=== PATIENT | female | born 1935 | race Caucasian/White ===

== ENCOUNTER 2017-02-28 02:03 | Inpatient (IN) | payer MEDICARE, BC ==
[2017-02-28] VITALS (27 sets, daily range): BP systolic 126–202; BP diastolic 60–94
[~2017-02-28] VITALS: Ht 152.4 cm; Wt 64.0 kg
[2017-02-28] MEDS ORDERED: HEPARIN for IV BOLUS 10,000 UNIT/10 ML VIAL. ONE ×2 (02:10→04:00)
[2017-02-28] MEDS ORDERED: NITROGLYCERIN SUBLINGUAL 0.4 MG BOTTLE OF 25. SL ONE (02:10)
[2017-02-28] MEDS ORDERED: MORPHINE SULFATE 2 MG/ML DISP.SYRIN. IV PRN ×2 (02:15→02:45)
[2017-02-28] MEDS ORDERED: NITROGLYCERIN SUBLINGUAL 0.4 MG BOTTLE OF 25. SL PRN ×2 (02:15→04:15)
[2017-02-28] MEDS ORDERED: HEPARIN for IV BOLUS 10,000 UNIT/10 ML VIAL. IV ONE ×2 (02:30→03:45)
[2017-02-28] MEDS ORDERED: ASPIRIN CHEWABLE 81 MG TABLET. PO ONE ×2 (02:30→04:00)
[2017-02-28 02:33] LABS: BASO % 1 % (0-3); EOS % 2 % (0-3); HEMATOCRIT 36.6 % (36.0-47.0); HEMOGLOBIN 12.1 g/dL (12.0-15.5); LYMPH # 2.3 x10^3/uL (1.0-4.8); LYMPH % 35 % (24-48); MEAN CORPUSCULAR HEMOGLOBIN 29 pg (25-35); MEAN CORPUSCULAR HGB CONC 33 g/dL (31-37); MEAN CORPUSCULAR VOLUME 88 fL (79-100); MONO % 11 % (0-9); NEUT % 52 % (31-73); PLATELET COUNT 170 x10^3/uL (140-400); RED BLOOD COUNT 4.18 x10^6/uL (3.50-5.40); RED CELL DISTRIBUTION WIDTH 14.6 % (11.5-14.5); WHITE BLOOD COUNT 6.5 x10^3/uL (4.0-11.0)
--- NOTE | 2017-02-28 02:34 | PHYS DOC ---
Past Medical History Past Medical History: Dementia, Diabetes-Type II, High Cholesterol, Hypertension Additional Past Medical Histor: LOW CALCIUM Past Surgical History: No Surgical History Alcohol Use: None Drug Use: None Adult General Chief Complaint Chief Complaint: CHEST PAIN HPI HPI 81-year-old female presenting to the emergency department today with chest pain and generalized fatigue and "hurting all over". She describes as starting approximately 5:00 this evening. She describes the pain as a pressure is nonradiating is moderate. She has a history of diabetes high blood pressure and GERD. shelter staff contacted paramedics who brought her in [facility]. EMS arrived and in route the patient pulse went into the low 30s and the patient received 0.5 mg of atropine. The patient was also given 325 mg of aspirin prior to arrival. Currently her pain is moderate or proximally 5 out of 10. Review of systems is negative for abdominal pain. Positive for nausea. Negative for diaphoresis. Negative for fevers or chills. All other review of systems is negative unless otherwise noted in history of present illness. Review of Systems Review of Systems SEE ABOVE. Current Medications Current Medications Current Medications Medications (Trade) Dose Ordered Sig/Leo Start Time Stop Time Status Last Admin Dose Admin Aspirin (Children'S Aspirin) 81 mg 1X ONCE 02/28/17 02:30 02/28/17 02:31 DC Fentanyl Citrate (Fentanyl 2ml Vial) 100 mcg STK-MED ONCE 02/28/17 02:44 02/28/17 02:45 DC Heparin Sodium (Porcine) 4,000 unit 1X ONCE 02/28/17 02:30 02/28/17 02:31 DC 02/28/17 02:13 4,000 UNIT Heparin Sodium/ Sodium Chloride 1,000 ml @ As Directed STK-MED ONCE 02/28/17 02:43 02/28/17 02:44 DC Iohexol 100 ml 100 ml STK-MED ONCE 02/28/17 02:43 02/28/17 02:44 DC Lidocaine HCl 20 ml STK-MED ONCE 02/28/17 02:43 02/28/17 02:44 DC Midazolam HCl (Versed) 2 mg STK-MED ONCE 02/28/17 02:44 02/28/17 02:45 DC Morphine Sulfate 2 mg PRN Q2HR PRN 02/28/17 02:45 03/01/17 02:44 Nitroglycerin (Nitrostat) 0.4 mg PRN Q5MIN PRN 02/28/17 02:15 02/28/17 02:11 0.4 MG Ondansetron HCl (Zofran) 4 mg PRN Q6HRS PRN 02/28/17 02:45 03/01/17 02:44 Allergies Allergies Allergies Coded Allergies Type Severity Reaction Last Updated Verified No Known Drug Allergies 02/28/17 No Physical Exam Physical Exam Constitutional: Well developed, well nourished, patient appears to be in a moderate amount of pain. She is awake and opens her eyes spontaneously. HENT: Normocephalic, atraumatic, bilateral external ears normal, oropharynx moist, no oral exudates, nose normal. [] Eyes: PERRLA, EOMI, conjunctiva normal, no discharge. [] Neck: Normal range of motion, no tenderness, supple, no stridor. Cardiovascular:Heart rate regular rhythm, no murmur [] Lungs & Thorax: Bilateral breath sounds clear to auscultation Abdomen: Bowel sounds normal, soft, no tenderness, no masses, no pulsatile masses. [] Skin: Warm, dry, no erythema, no rash. Back: No tenderness, no CVA tenderness. [] Extremities: No tenderness, no cyanosis, no clubbing, ROM intact, no edema. Neurologic: Alert and oriented X 3, normal motor function, normal sensory function, no focal deficits noted. Psychologic: Affect normal, judgement normal, mood normal. Current Patient Data Vital Signs Vital Signs Date Time Temp Pulse Resp B/P Pulse Ox O2 Delivery O2 Flow Rate FiO2 02/28/17 02:48 68 18 181/93 93 Nasal Cannula 2 02/28/17 02:08 97.5 97.5 Lab Values Laboratory Tests Test 02/28/17 02:20 02/28/17 02:23 White Blood Count 6.5x10^3/uL (4.0-11.0) Red Blood Count 4.18x10^6/uL (3.50-5.40) Hemoglobin 12.1g/dL (12.0-15.5) Hematocrit 36.6% (36.0-47.0) Mean Corpuscular Volume 88fL (79-100) Mean Corpuscular Hemoglobin 29pg (25-35) Mean Corpuscular Hemoglobin Concent 33g/dL (31-37) Red Cell Distribution Width 14.6% (11.5-14.5) H Platelet Count 170x10^3/uL (140-400) Neutrophils (%) (Auto) 52% (31-73) Lymphocytes (%) (Auto) 35% (24-48) Monocytes (%) (Auto) 11% (0-9) H Eosinophils (%) (Auto) 2% (0-3) Basophils (%) (Auto) 1% (0-3) Neutrophils # (Auto) 3.3x10^3uL (1.8-7.7) Lymphocytes # (Auto) 2.3x10^3/uL (1.0-4.8) Monocytes # (Auto) 0.7x10^3/uL (0.0-1.1) Eosinophils # (Auto) 0.1x10^3/uL (0.0-0.7) Basophils # (Auto) 0.0x10^3/uL (0.0-0.2) Sodium Level 140mmol/L (136-145) Potassium Level 3.4mmol/L (3.5-5.1) L Chloride Level 103mmol/L (98-107) Carbon Dioxide Level 26mmol/L (21-32) Anion Gap 11 (6-14) Blood Urea Nitrogen 20mg/dL (7-20) Creatinine 1.3mg/dL (0.6-1.0) H Estimated GFR (Cockcroft-Gault) 39.4 Glucose Level 300mg/dL (70-99) H Calcium Level 9.6mg/dL (8.5-10.1) Total Bilirubin 0.2mg/dL (0.2-1.0) Direct Bilirubin 0.1mg/dL (0.0-0.2) Aspartate Amino Transferase (AST) 19U/L (15-37) Alanine Aminotransferase (ALT) 26U/L (14-59) Alkaline Phosphatase 59U/L (46-116) Troponin I Quantitative < 0.017ng/mL (0.000-0.055) Total Protein 6.9g/dL (6.4-8.2) Albumin 3.6g/dL (3.4-5.0) Lipase 368U/L (73-393) POC Troponin I 0.00ng/ml (<0.08) Laboratory Tests 02/28/17 02:20 Laboratory Tests 02/28/17 02:20 EKG EKG [] EKG without previous for comparison shows sinus rhythm with a regular rate. [place] is leftward. Intervals show prolonged QRS. ST segments show ST elevation in the inferior leads with ST depression in anterior lateral leads. Code STEMI called at 02:08 AM. Radiology/Procedures Radiology/Procedures Chest x-ray reviewed by myself shows no obvious infiltrate or pneumothorax. [] Course & Med Decision Making Course & Med Decision Making Pertinent Labs and Imaging studies reviewed. (See chart for details) [] 81-year-old female presenting to the emergency department with chest pain. Patient was hypertensive in the emergency department. Nitroglycerin was given for her pain. EKG shows inferior STEMI. Code STEMI called at [phone]. I discussed the case with Dr. Talamantes. The patient was given aspirin prior to arrival. She was loaded with heparin. She then went to the cardiac catheterization lab for further evaluation treatment and care. I secured the patient that in our ICU for after cardiac catheterization and admitted her to our hospitalist team for further evaluation workup and care. Dragon Disclaimer Dragon Disclaimer This electronic medical record was generated, in whole or in part, using a voice recognition dictation system. Departure Departure Impression: Primary Impression: STEMI (ST elevation myocardial infarction) Additional Impression: Chest pain Disposition: 01 HOME, SELF-CARE Admitting Physician: Other (Dr. Thomason) Condition: STABLE Referrals: UNKNOWN PCP NAME (PCP) Problem Qualifiers Primary Impression: STEMI (ST elevation myocardial infarction) CARLA MAYERS MD Feb 28, 2017 02:33
[2017-02-28] MEDS ORDERED: IOHEXOL 350 MG/ML 100ML VIAL. ONE ×2 (02:43→03:15)
[2017-02-28] MEDS ORDERED: LIDOCAINE 2% 20 ML VIAL. ONE (02:43)
[2017-02-28] MEDS ORDERED: MIDAZOLAM HCL/PF 2 MG/2 ML VIAL. ONE (02:44)
[2017-02-28] MEDS ORDERED: FENTANYL PF 100 MCG/2 ML VIAL. ONE (02:44)
[2017-02-28] MEDS ORDERED: ONDANSETRON PF 4 MG/2 ML VIAL. IV PRN ×2 (02:45)
[2017-02-28 02:47] LABS: CALCIUM 9.6 mg/dL (8.5-10.1); CREATININE 1.3 mg/dL (0.6-1.0); GFR 39.4; POTASSIUM 3.4 mmol/L (3.5-5.1)
[2017-02-28 02:53] LABS: ALBUMIN 3.6 g/dL (3.4-5.0); DIRECT BILIRUBIN 0.1 mg/dL (0.0-0.2); TOTAL BILIRUBIN 0.2 mg/dL (0.2-1.0); TOTAL PROTEIN 6.9 g/dL (6.4-8.2)
[2017-02-28] MEDS ORDERED: TIROFIBAN 12.5MG -0.9% NS 250 ML IV PRN ×2 (03:29→04:15)
[2017-02-28] MEDS ORDERED: TIROFIBAN 5MG -0.9% NS 100 ML IV ONE (03:45)
[2017-02-28] MEDS ORDERED: LIDOCAINE 2% 20 ML VIAL. IJ ONE (03:45)
[2017-02-28] MEDS ORDERED: IOHEXOL 350 MG/ML 100ML VIAL. IART ONE (03:45)
[2017-02-28] MEDS ORDERED: FENTANYL PF 100 MCG/2 ML VIAL. IV ONE (03:45)
[2017-02-28] MEDS ORDERED: MIDAZOLAM HCL/PF 2 MG/2 ML VIAL. IV ONE (03:45)
[2017-02-28] MEDS ORDERED: TICAGRELOR 90 MG TABLET. ONE (03:53)
[2017-02-28] MEDS ORDERED: TIROFIBAN-0.9% SODIUM CHLORIDE 12.5 MG/250 ML BAG. IV ONE (04:00)
[2017-02-28] MEDS ORDERED: TICAGRELOR 90 MG TABLET. PO ONE (04:00)
--- NOTE | 2017-02-28 04:07 | PDOC2 ---
CONSULT Date of Consult Date of Consult DATE: 02/28/17 TIME: 04:02 Reason for Consult Reason for Consult: Chest pain Referring Physician Referring Physician: Dr. Thomason Identification/Chief Complaint Chief Complaint Chest pain Source Source: Patient History of Present Illness Reason for Visit: The patient is an 81-year-old female who developed chest pressure approximately 3 hours ago. Paramedics were called and while in transport to the emergency room the patient had an episode of bradycardia treated with atropine. Upon arrival in the emergency room the patient had an EKG that was consistent with a inferior wall ST elevated myocardial infarction. She was treated with heparin and aspirin and as STEMI protocol was activated. Her pain improved somewhat but didn't continue. She has no history of coronary artery disease but does have a history of diabetes, hypertension and hyperlipidemia. Past Medical History Cardiovascular: HTN, Hyperlipidemia CENTRAL NERVOUS SYSTEM: Dementia Endocrine: Diabetes Past Surgical History Past Surgical History: No pertinent history Family History Family History: Heart Disease Social History No Current Problem List Problem List Problems Medical Problems: (1) Chest pain Status: Acute (2) STEMI (ST elevation myocardial infarction) Status: Acute Current Medications Current Medications Current Medications Nitroglycerin (Nitrostat) 0.4 mg STK-MED ONCE SL ; Start 02/28/17 at 02:10; Stop 02/28/17 at 02:11; Status DC Heparin Sodium (Porcine) 10,000 unit STK-MED ONCE .ROUTE ; Start 02/28/17 at 02: 10; Stop 02/28/17 at 02:11; Status DC Aspirin (Children'S Aspirin) 81 mg 1X ONCE PO ; Start 02/28/17 at 02:30; Stop 02/28/17 at 02:31; Status DC Nitroglycerin (Nitrostat) 0.4 mg PRN Q5MIN PRN SL CHEST PAIN Last administered on 02/28/17 02:11; Start 02/28/17 at 02:15 Morphine Sulfate 2 mg PRN Q1HR PRN IV SEVERE PAIN; Start 02/28/17 at 02:15; Stop 02/28/17 at 06:00 Heparin Sodium (Porcine) 4,000 unit 1X ONCE IV Last administered on 02/28/17 02:13; Start 02/28/17 at 02:30; Stop 02/28/17 at 02:31; Status DC Ondansetron HCl (Zofran) 4 mg PRN Q8HRS PRN IV NAUSEA/VOMITING; Start 02/28/17 at 02:45; Stop 02/28/17 at 02:45; Status DC Morphine Sulfate 2 mg PRN Q2HR PRN IV SEVERE PAIN; Start 02/28/17 at 02:45; Stop 03/01/17 at 02:44 Ondansetron HCl (Zofran) 4 mg PRN Q6HRS PRN IV NAUSEA/VOMITING; Start 02/28/17 at 02:45; Stop 03/01/17 at 02:44 Iohexol 100 ml 100 ml STK-MED ONCE .ROUTE ; Start 02/28/17 at 02:43; Stop at 02:44; Status DC Heparin Sodium/ Sodium Chloride 1,000 ml @ As Directed STK-MED ONCE .ROUTE ; Start 02/28/17 at 02:43; Stop 02/28/17 at 02:44; Status DC Lidocaine HCl 20 ml STK-MED ONCE .ROUTE ; Start 02/28/17 at 02:43; Stop at 02:44; Status DC Midazolam HCl (Versed) 2 mg STK-MED ONCE .ROUTE ; Start 02/28/17 at 02:44; Stop 02/28/17 at 02:45; Status DC Fentanyl Citrate (Fentanyl 2ml Vial) 100 mcg STK-MED ONCE .ROUTE ; Start at 02:44; Stop 02/28/17 at 02:45; Status DC Iohexol 100 ml 100 ml STK-MED ONCE .ROUTE ; Start 02/28/17 at 03:15; Stop at 03:16; Status DC Heparin Sodium/ Sodium Chloride 500 ml @ As Directed STK-MED ONCE .ROUTE ; Start 02/28/17 at 03:35; Stop 02/28/17 at 03:36; Status DC Heparin Sodium/ Sodium Chloride 1,000 unit 1X ONCE IART ; Start 02/28/17 at 03: 45; Stop 02/28/17 at 03:46; Status DC Heparin Sodium/ Sodium Chloride 1,000 unit 1X ONCE IART ; Start 02/28/17 at 03: 45; Stop 02/28/17 at 03:46; Status DC Midazolam HCl (Versed) 1 mg 1X ONCE IV ; Start 02/28/17 at 03:45; Stop at 03:46; Status DC Fentanyl Citrate (Fentanyl 2ml Vial) 12.5 mcg 1X ONCE IV ; Start 02/28/17 at 03 :45; Stop 02/28/17 at 03:46; Status DC Iohexol (Omnipaque 350 Mg/ml) 100 ml 1X ONCE IART ; Start 02/28/17 at 03:45; Stop 02/28/17 at 03:46; Status DC Heparin Sodium (Porcine) 2,000 unit 1X ONCE IV ; Start 02/28/17 at 03:45; Stop 02/28/17 at 03:46; Status DC Lidocaine HCl 20 ml 20 ml 1X ONCE IJ ; Start 02/28/17 at 03:45; Stop 02/28/17 at 03:46; Status DC Tirofiban/Sodium Chloride 100 ml @ 0 mls/hr 1X ONCE IV ; Start 02/28/17 at 03: 45; Stop 02/28/17 at 03:46; Status DC Tirofiban/Sodium Chloride (Aggrastat 12.5 Mg/250 ml Premix) 250 ml @ 0 mls/hr CONT PRN IV PER PROTOCOL; Start 02/28/17 at 03:29; Stop 02/28/17 at 21:28 Ticagrelor (Brilinta) 180 mg 1X ONCE PO ; Start 02/28/17 at 04:00; Stop at 04:01 Aspirin (Children'S Aspirin) 81 mg 1X ONCE PO ; Start 02/28/17 at 04:00; Stop 02/28/17 at 04:01 Ticagrelor (Brilinta) 90 mg STK-MED ONCE .ROUTE ; Start 02/28/17 at 03:53; Stop 02/28/17 at 03:54; Status DC Allergies Allergies: Coded Allergies: No Known Drug Allergies (Unverified , 02/28/17) ROS Cardiovascular: yes Chest Pain Physical Exam General: mild distress HEENT: Atraumatic Lungs: Clear to auscultation Heart: Regular rate Abdomen: Normal bowel sounds Vitals VITALS Vital Signs Date Time Temp Pulse Resp B/P Pulse Ox O2 Delivery O2 Flow Rate FiO2 02/28/17 03:58 72 14 96 Nasal Cannula 2.0 02/28/17 02:48 181/93 02/28/17 02:08 97.5 97.5 Labs Labs Laboratory Tests Test 02/28/17 02:20 02/28/17 02:23 White Blood Count 6.5x10^3/uL (4.0-11.0) Red Blood Count 4.18x10^6/uL (3.50-5.40) Hemoglobin 12.1g/dL (12.0-15.5) Hematocrit 36.6% (36.0-47.0) Mean Corpuscular Volume 88fL (79-100) Mean Corpuscular Hemoglobin 29pg (25-35) Mean Corpuscular Hemoglobin Concent 33g/dL (31-37) Red Cell Distribution Width 14.6% (11.5-14.5) Platelet Count 170x10^3/uL (140-400) Neutrophils (%) (Auto) 52% (31-73) Lymphocytes (%) (Auto) 35% (24-48) Monocytes (%) (Auto) 11% (0-9) Eosinophils (%) (Auto) 2% (0-3) Basophils (%) (Auto) 1% (0-3) Neutrophils # (Auto) 3.3x10^3uL (1.8-7.7) Lymphocytes # (Auto) 2.3x10^3/uL (1.0-4.8) Monocytes # (Auto) 0.7x10^3/uL (0.0-1.1) Eosinophils # (Auto) 0.1x10^3/uL (0.0-0.7) Basophils # (Auto) 0.0x10^3/uL (0.0-0.2) Sodium Level 140mmol/L (136-145) Potassium Level 3.4mmol/L (3.5-5.1) Chloride Level 103mmol/L (98-107) Carbon Dioxide Level 26mmol/L (21-32) Anion Gap 11 (6-14) Blood Urea Nitrogen 20mg/dL (7-20) Creatinine 1.3mg/dL (0.6-1.0) Estimated GFR (Cockcroft-Gault) 39.4 Glucose Level 300mg/dL (70-99) Calcium Level 9.6mg/dL (8.5-10.1) Total Bilirubin 0.2mg/dL (0.2-1.0) Direct Bilirubin 0.1mg/dL (0.0-0.2) Aspartate Amino Transf (AST/SGOT) 19U/L (15-37) Alanine Aminotransferase (ALT/SGPT) 26U/L (14-59) Alkaline Phosphatase 59U/L (46-116) Troponin I Quantitative < 0.017ng/mL (0.000-0.055) EJ-Uum-D-Type Natriuretic Peptide 99pg/mL (0-449) Total Protein 6.9g/dL (6.4-8.2) Albumin 3.6g/dL (3.4-5.0) Lipase 368U/L (73-393) Bedside Troponin I 0.00ng/ml (<0.08) Laboratory Tests Test 02/28/17 02:20 02/28/17 02:23 White Blood Count 6.5x10^3/uL (4.0-11.0) Red Blood Count 4.18x10^6/uL (3.50-5.40) Hemoglobin 12.1g/dL (12.0-15.5) Hematocrit 36.6% (36.0-47.0) Mean Corpuscular Volume 88fL (79-100) Mean Corpuscular Hemoglobin 29pg (25-35) Mean Corpuscular Hemoglobin Concent 33g/dL (31-37) Red Cell Distribution Width 14.6% (11.5-14.5) Platelet Count 170x10^3/uL (140-400) Neutrophils (%) (Auto) 52% (31-73) Lymphocytes (%) (Auto) 35% (24-48) Monocytes (%) (Auto) 11% (0-9) Eosinophils (%) (Auto) 2% (0-3) Basophils (%) (Auto) 1% (0-3) Neutrophils # (Auto) 3.3x10^3uL (1.8-7.7) Lymphocytes # (Auto) 2.3x10^3/uL (1.0-4.8) Monocytes # (Auto) 0.7x10^3/uL (0.0-1.1) Eosinophils # (Auto) 0.1x10^3/uL (0.0-0.7) Basophils # (Auto) 0.0x10^3/uL (0.0-0.2) Sodium Level 140mmol/L (136-145) Potassium Level 3.4mmol/L (3.5-5.1) Chloride Level 103mmol/L (98-107) Carbon Dioxide Level 26mmol/L (21-32) Anion Gap 11 (6-14) Blood Urea Nitrogen 20mg/dL (7-20) Creatinine 1.3mg/dL (0.6-1.0) Estimated GFR (Cockcroft-Gault) 39.4 Glucose Level 300mg/dL (70-99) Calcium Level 9.6mg/dL (8.5-10.1) Total Bilirubin 0.2mg/dL (0.2-1.0) Direct Bilirubin 0.1mg/dL (0.0-0.2) Aspartate Amino Transf (AST/SGOT) 19U/L (15-37) Alanine Aminotransferase (ALT/SGPT) 26U/L (14-59) Alkaline Phosphatase 59U/L (46-116) Troponin I Quantitative < 0.017ng/mL (0.000-0.055) ZE-Hdu-Z-Type Natriuretic Peptide 99pg/mL (0-449) Total Protein 6.9g/dL (6.4-8.2) Albumin 3.6g/dL (3.4-5.0) Lipase 368U/L (73-393) Bedside Troponin I 0.00ng/ml (<0.08) Assessment/Plan Assessment/Plan 1. Acute inferior ST elevated myocardial infarction. Patient has been treated with aspirin and heparin. Pain has continued although improved. Agree with emergency catheterization. Risks and benefits were discussed and the patient has agreed to proceed. 2. Hypertension. Patient is mildly hypertensive.Continue present treatments and monitoring. We'll adjust medications as needed. 3. Hyperlipidemia. Will resume statins and check a cholesterol panel. 4. Diabetes mellitus. We'll monitor glucose and adjust as needed. Thank you for allowing us to participate the care of your patient. MARICARMEN MURDOCK MD Feb 28, 2017 04:07
[2017-02-28] MEDS: IV NORMAL SALINE 1000ML BAG 1,000 ML IV SCH ×2 (04:09→21:11)
--- NOTE | 2017-02-28 04:09 | PDOC4 ---
Operative Note Operative Note Brief catheterization note. LV 167/28, aortic root 167/68. Coronaries. Left main. No lesions. Left anterior descending. Proximal 15% lesion. Left circumflex. Mid 10% lesion. Right coronary artery. Ostial 20% lesion. Mid occlusion. Left ventriculogram. Overall ejection fraction of greater than 55% minimal inferior wall hypokinesis. Aortic root appears mild to moderately enlarged. Revascularization of the occluded right coronary artery. 3.0 x 23 mm bare-metal stent deployed. 0% residual. We'll continue post PCI and ST elevated myocardial infarction protocols. Discussed with the patient and her family. Full report to follow. MARICARMEN MURDOCK MD Feb 28, 2017 04:09
[2017-02-28] MEDS ORDERED: ACETAMINOPHEN 325 MG TABLET. PO PRN (04:15)
[2017-02-28] MEDS ORDERED: ATROPINE 0.5 MG/5 ML DISP.SYRIN. IV PRN (04:15)
[2017-02-28] MEDS ORDERED: AMIODARONE 150 MG in IV DEXTROSE 5% 100 ML IV PRN (04:15)
[2017-02-28] MEDS ORDERED: 0.9 % SODIUM CHLORIDE 10 ML DISP.SYRIN. IV PRN (04:15)
[2017-02-28] MEDS ORDERED: LIDOCAINE 2% 100 MG/5 ML DISP.SYRIN. IV PRN (04:15)
[2017-02-28] MEDS ORDERED: OXYCODONE/APAP 5/325 TABLET. PO PRN (04:15)
[2017-02-28] MEDS ORDERED: FENTANYL PF 100 MCG/2 ML VIAL. IV PRN (04:15)
[2017-02-28] MEDS ORDERED: AMLODIPINE BESYLATE 5 MG TABLET. PO ONE (05:00)
--- NOTE | 2017-02-28 06:36 | EKG ---
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
[2017-02-28] MEDS ORDERED: INSU100I13 SQ (06:40)
[2017-02-28] MEDS ORDERED: CALC0.25 PO (06:40)
[2017-02-28] MEDS ORDERED: POTA20TA4 PO (06:40)
[2017-02-28] MEDS ORDERED: GLIP5TAB10 PO (06:40)
[2017-02-28] MEDS ORDERED: LISI-334 PO (06:40)
[2017-02-28] MEDS ORDERED: TRAM50TA PO (06:40)
[2017-02-28] MEDS ORDERED: OMEP20CA9 PO (06:40)
[2017-02-28] MEDS ORDERED: FENO145T2 PO (06:40)
--- NOTE | 2017-02-28 07:29 | RAD ---
EXAM: Chest, single view. HISTORY: Chest pain. COMPARISON: None. FINDINGS: A frontal view of the chest is obtained. There is lateral lower lobe atelectasis. There is no consolidation, effusion or pneumothorax. The heart is normal in size for portable technique. There is prominence of the superior mediastinum likely due to aortic arch great vessels. IMPRESSION: No acute pulmonary finding.
[2017-02-28 08:44] LABS: BASO % 0 % (0-3); EOS % 0 % (0-3); HEMATOCRIT 36.9 % (36.0-47.0); LYMPH # 1.1 x10^3/uL (1.0-4.8); LYMPH % 14 % (24-48); MEAN CORPUSCULAR HEMOGLOBIN 28 pg (25-35); MEAN CORPUSCULAR HGB CONC 33 g/dL (31-37); MEAN CORPUSCULAR VOLUME 87 fL (79-100); MONO % 7 % (0-9); NEUT % 79 % (31-73); PLATELET COUNT 202 x10^3/uL (140-400); RED BLOOD COUNT 4.24 x10^6/uL (3.50-5.40); RED CELL DISTRIBUTION WIDTH 14.4 % (11.5-14.5); WHITE BLOOD COUNT 8.4 x10^3/uL (4.0-11.0)
[2017-02-28] MEDS ORDERED: METOPROLOL TART IMMED RELEASE 25 MG TABLET PO SCH ×2 (09:00→21:00)
[2017-02-28 09:03] LABS: CALCIUM 9.7 mg/dL (8.5-10.1); CREATININE 1.2 mg/dL (0.6-1.0); GFR 43.2; MAGNESIUM 1.5 mg/dL (1.8-2.4); POTASSIUM 3.9 mmol/L (3.5-5.1)
[2017-02-28 09:07] LABS: CHOLESTEROL/HDL RATIO 4.8
[2017-02-28] MEDS: CYCLOBENZAPRINE 10 MG TABLET. PO PRN ×2 (10:32→21:03)
[2017-02-28] MEDS: ASPIRIN ENTERIC COATED 81 MG TABLET.DR. PO SCH (10:33)
[2017-02-28] MEDS ORDERED: TRAMADOL 50 MG TABLET. PO PRN (10:45)
[2017-02-28] MEDS ORDERED: POTASSIUM CHLORIDE 20 MEQ TABLET.ER. PO ONE (10:45)
[2017-02-28] MEDS ORDERED: POTASSIUM CHLORIDE 20 MEQ TABLET.ER. PO SCH (11:00)
--- NOTE | 2017-02-28 11:18 | HP ---
ADMIT DATE: 02/28/2017 CHIEF COMPLAINT: Chest pain. HISTORY OF PRESENT ILLNESS: The patient is a pleasant elderly female, who presented to the ER with chest pain. While in the ER, she had ST elevations and was noted to have an acute myocardial infarction. She was taken emergently to the catheterization lab. She got a stent to the RCA. She is now in the ICU, where her troponin is trending up. PAST MEDICAL HISTORY: Hypertension, diabetes, mild dementia, hyperlipidemia, and hypocalcemia. ALLERGIES: None. FAMILY HISTORY: Coronary artery disease. SOCIAL HISTORY: She does not drink, smoke, or take drugs. MEDICATIONS: Reviewed. Please refer to the MRAD. REVIEW OF SYSTEMS: GENERAL: No history of weight change, weakness, or fevers. SKIN: No bruising, hair changes, or rashes. EYES: No blurred, double or loss of vision. NOSE AND THROAT: No history of nosebleeds, hoarseness, or sore throat. HEART: No history of palpitations, chest pain, or shortness of breath on exertion. LUNGS: Denies cough, hemoptysis, wheezing, or shortness of breath. GASTROINTESTINAL: Denies changes in appetite, nausea, vomiting, diarrhea, or constipation. GENITOURINARY: No history of frequency, urgency, hesitancy, or nocturia. NEUROLOGIC: Denies history of numbness, tingling, tremor, or weakness. PSYCHIATRIC: No history of panic, anxiety, or depression. ENDOCRINE: No history of heat or cold intolerance, polyuria, or polydipsia. EXTREMITIES: Denies muscle weakness, joint pain, pain on walking, or stiffness. PHYSICAL EXAMINATION: VITAL SIGNS: Temperature afebrile, pulse 82, respirations 18, and blood pressure 184/64. GENERAL: She is alert, cooperative, and ____. HEART: Normal S1, S2. LUNGS: Clear. ABDOMEN: Soft. EXTREMITIES: No edema. SKIN: No rashes. PSYCHIATRIC: She is stable. VASCULAR: Good capillary refill. ENDOCRINE: No thyromegaly. LYMPHATICS: No cervical nodes. HEMATOPOIETIC: No bruising. LABORATORY DATA: White count 6, hemoglobin 12, and platelets 170. Troponin was 0, it is now up to 65.36. Electrolytes: Sodium ____, potassium 3.9, chloride 101, bicarbonate 25, BUN 18, creatinine 1.3, and glucose 355. ASSESSMENT AND PLAN: Acute myocardial infarction with status post emergent intervention with a stent to the right coronary artery. The patient will be observed in the ICU. Continue serial enzymes and serial EKGs. Resume her home medications. Echocardiogram. Prognosis is guarded. LEONORA DUVALL DO DR: DELIA/gareth JOB#: [id number] / [id number]
--- NOTE | 2017-02-28 11:49 | CARD ---
APPROVED REPORT EXAM: Two-dimensional and M-mode echocardiogram with Doppler and color Doppler. Other Information Quality : AverageHR: 80bpm Rhythm : NSR INDICATION Status/Post DE 2D DIMENSIONS RVDd3.2 (2.9-3.5cm)Left Atrium(2D)3.2 (1.6-4.0cm) IVSd0.9 (0.7-1.1cm)Aortic Root(2D)2.8 (2.0-3.7cm) LVDd4.5 (3.9-5.9cm)LVOT Diameter2.0 (1.8-2.4cm) PWd0.9 (0.7-1.1cm)LVDs3.2 (2.5-4.0cm) FS (%) 28.9 %SV52.1 ml LVEF(%)55.7 (>50%) Aortic Valve AoV Peak Son.163.0cm/sAoV VTI24.1cm AO Peak GR.10.6mmHgLVOT VTI 23.66cm AO Mean GR.5mmHg Mitral Valve MV E Ejuqmjez03.6cm/sMV E Peak Gr.12mmHg MV DECEL [id number] A Lgwixete288.8cm/s MV E Mean Gr.3mmHgE/A Ratio0.4 MV A [id number] TDI Lateral E' P. V9.18cm/sMedial E' P. V9.28cm/s E/Lateral E'7.0E/Medial E'7.0 LEFT VENTRICLE The left ventricle is normal size. There is normal left ventricular wall thickness. Left ventricle sy stolic function is normal. The Ejection Fraction is 50-55%. The basal to mid inferior wall is moderat geo hypokinetic. Transmitral Doppler flow pattern is Grade I-abnormal relaxation pattern. There is no ventricular septal defect visualized. RIGHT VENTRICLE The right ventricle is normal size. The right ventricular systolic function is normal. ATRIA The left atrium size is normal. The right atrium size is normal. The interatrial septum is intact wit h no evidence for an atrial septal defect or patent foramen ovale as noted on 2-D or Doppler imaging. AORTIC VALVE The aortic valve is normal in structure and function. The aortic valve is trileaflet. Doppler and Col or Flow revealed no significant aortic regurgitation. There is no significant aortic valvular stenosi s. MITRAL VALVE Mitral annular calcification is moderate. The mitral valve leaflets are calcified. There is no eviden ce of mitral valve prolapse. There is no mitral valve stenosis. Doppler and Color Flow revealed trace mitral regurgitation. TRICUSPID VALVE The tricuspid valve is normal in structure and function. Doppler and Color Flow revealed no tricuspid valve regurgitation noted. Unable to estimate PA pressure. There is no tricuspid valve stenosis. PULMONIC VALVE Doppler and Color Flow revealed no pulmonic valvular regurgitation. There is no pulmonic valvular olga nosis. GREAT VESSELS The aortic root is normal in size. 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 The IVC is normal in siz e and collapses >50% with inspiration. PERICARDIAL EFFUSION There is no pleural effusion. There is no evidence of significant pericardial effusion. Critical Notification Critical Value: No <Conclusion> The basal to mid inferior wall is moderately hypokinetic. Left ventricle systolic function is normal. The Ejection Fraction is 50-55%. 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 The IVC is normal in size and collapses >50% with inspiration.
[2017-02-28] MEDS ORDERED: PANTOPRAZOLE 40 MG TABLET. PO SCH (12:00)
[2017-02-28] MEDS ORDERED: LISINOPRIL 20 MG TABLET PO SCH (12:00)
[2017-02-28] MEDS: FENOFIBRATE,MICRONIZED 134 MG CAPSULE PO SCH (12:55)
[2017-02-28] MEDS: GLIPIZIDE 5 MG TABLET PO SCH (12:55)
[2017-02-28] MEDS: CALCITRIOL 0.25 MCG CAPSULE. PO SCH (12:55)
--- NOTE | 2017-02-28 12:56 | EKG ---
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
[2017-02-28] MEDS ORDERED: LISINOPRIL 5 MG TABLET. PO SCH (13:00)
[2017-02-28] MEDS ORDERED: DEXTROSE 50% 25 GM / 50ML DISP.SYRIN. IV PRN (16:15)
[2017-02-28] MEDS: INSULIN ASPART 300 UNITS/3 ML INSULN.PEN SQ SCH (16:43)
[2017-02-28] MEDS ORDERED: ATORVASTATIN CALCIUM 20 MG TABLET PO SCH (21:00)
[2017-02-28] MEDS: INSULIN DETEMIR 300 UNITS/3 ML INSULN.PEN. SQ SCH (21:12)
[2017-03-01] VITALS (11 sets, daily range): BP systolic 117–154; BP diastolic 60–66
[2017-03-01 06:26] LABS: CALCIUM 9.6 mg/dL (8.5-10.1); CREATININE 1.3 mg/dL (0.6-1.0); GFR 39.4; POTASSIUM 3.7 mmol/L (3.5-5.1)
[2017-03-01 06:44] LABS: BASO % 0 % (0-3); EOS % 1 % (0-3); HEMOGLOBIN 10.4 g/dL (12.0-15.5); LYMPH # 1.8 x10^3/uL (1.0-4.8); LYMPH % 26 % (24-48); MEAN CORPUSCULAR HEMOGLOBIN 29 pg (25-35); MEAN CORPUSCULAR HGB CONC 34 g/dL (31-37); MEAN CORPUSCULAR VOLUME 87 fL (79-100); MONO % 12 % (0-9); NEUT % 61 % (31-73); PLATELET COUNT 183 x10^3/uL (140-400); RED BLOOD COUNT 3.57 x10^6/uL (3.50-5.40); RED CELL DISTRIBUTION WIDTH 14.1 % (11.5-14.5); WHITE BLOOD COUNT 6.9 x10^3/uL (4.0-11.0)
[2017-03-01] MEDS ORDERED: GLIPIZIDE 5 MG TABLET. ONE (07:04)
[2017-03-01] MEDS: FENOFIBRATE,MICRONIZED 134 MG CAPSULE PO SCH (08:04)
[2017-03-01] MEDS: GLIPIZIDE 5 MG TABLET PO SCH (08:04)
[2017-03-01] MEDS: PANTOPRAZOLE 40 MG TABLET.DR. PO SCH (08:04)
[2017-03-01] MEDS: CALCITRIOL 0.25 MCG CAPSULE. PO SCH (08:04)
[2017-03-01] MEDS: ASPIRIN ENTERIC COATED 81 MG TABLET.DR. PO SCH (08:04)
[2017-03-01] MEDS: POTASSIUM CHLORIDE 20 MEQ TABLET.ER. PO SCH (08:05)
[2017-03-01] MEDS: INSULIN ASPART 300 UNITS/3 ML INSULN.PEN SQ SCH ×2 (08:07→11:49)
[2017-03-01] MEDS: TICAGRELOR 90 MG TABLET. PO SCH ×2 (09:20→21:00)
[2017-03-01] MEDS: METOPROLOL TART IMMED RELEASE 25 MG TABLET. PO SCH ×2 (09:21→21:05)
--- NOTE | 2017-03-01 11:11 | PDOC ---
CARDIO Progress Notes Date and Time Date of Service 03/01/17 Time of Evaluation 1100 Subjective Subjective: No Chest Pain, No shortness of breath, No Palpitations Vitals Vitals Vital Signs Date Time Temp Pulse Resp B/P Pulse Ox O2 Delivery O2 Flow Rate FiO2 03/01/17 09:21 77 145/60 03/01/17 07:00 20 98 Room Air 03/01/17 04:00 97.8 97.8 Weight Weight [ ] Input and Output Intake and Output Intake and Output 03/01/17 07:00 Intake Total 2672 ml Output Total 2000 ml Balance 672 ml Intake Oral 1750 ml IV Total 922 ml Output Urine Total 2000 ml Laboratory Labs Laboratory Tests Test 02/28/17 12:33 02/28/17 14:35 02/28/17 16:12 02/28/17 21:10 Glucose (Fingerstick) 296mg/dL (70-99) 278mg/dL (70-99) 235mg/dL (70-99) Troponin I Quantitative 50.370ng/mL (0.000-0.055) Test 03/01/17 05:30 03/01/17 07:51 White Blood Count 6.9x10^3/uL (4.0-11.0) Red Blood Count 3.57x10^6/uL (3.50-5.40) Hemoglobin 10.4g/dL (12.0-15.5) Hematocrit 31.0% (36.0-47.0) Mean Corpuscular Volume 87fL (79-100) Mean Corpuscular Hemoglobin 29pg (25-35) Mean Corpuscular Hemoglobin Concent 34g/dL (31-37) Red Cell Distribution Width 14.1% (11.5-14.5) Platelet Count 183x10^3/uL (140-400) Neutrophils (%) (Auto) 61% (31-73) Lymphocytes (%) (Auto) 26% (24-48) Monocytes (%) (Auto) 12% (0-9) Eosinophils (%) (Auto) 1% (0-3) Basophils (%) (Auto) 0% (0-3) Neutrophils # (Auto) 4.2x10^3uL (1.8-7.7) Lymphocytes # (Auto) 1.8x10^3/uL (1.0-4.8) Monocytes # (Auto) 0.8x10^3/uL (0.0-1.1) Eosinophils # (Auto) 0.1x10^3/uL (0.0-0.7) Basophils # (Auto) 0.0x10^3/uL (0.0-0.2) Sodium Level 142mmol/L (136-145) Potassium Level 3.7mmol/L (3.5-5.1) Chloride Level 106mmol/L (98-107) Carbon Dioxide Level 24mmol/L (21-32) Anion Gap 12 (6-14) Blood Urea Nitrogen 17mg/dL (7-20) Creatinine 1.3mg/dL (0.6-1.0) Estimated GFR (Cockcroft-Gault) 39.4 Glucose Level 188mg/dL (70-99) Calcium Level 9.6mg/dL (8.5-10.1) Glucose (Fingerstick) 160mg/dL (70-99) Physical Exam HEENT: Neck Supple W Full Motion Chest: Symmetric LUNGS: Clear to Auscultation Heart: S1S2, RRR, no murmurs Abdomen: Soft N/T Extremities: 2+ Dorsalis Pedis, No Edema, No Calf Tenderness Neurology: alert, follow commands, confused Assessment Assessment 1. STEMI 2. CAD s/p PCI/ 3. Ascending aortic aneurysm; 3.9 cm per echo 4. Hypertension 5. Hyperlipidemia 6. Diabetes 7. CKD Recommendations May downgrade to CVC status am labs Check UA per families request, although confusion expected given history of dementia and ICU setting DAPT with ASA and Brilinta increase statin therapy Risk stratification modification Cardiac rehab referral Outpatient f/u of ascending aortic aneurysm GURMEET WEBB APRN Mar 01, 2017 11:11
--- NOTE | 2017-03-01 11:25 | PDOC ---
PROGRESS NOTES Chief Complaint Chief Complaint STEMI Right Coronary Artery stent placement HTN Diabetes Dementia Mild Anemia History of Present Illness History of Present Illness No acute events overnight. Patient is sitting up in her chair visiting with family. She is in good spirits and states she is feeling much better. She lives in assisted living and would like to be discharged. She ambulates independently and demonstrates this to me without issue. Her troponins are trending down. Echo shoed an ejection fraction of 50-55% and mild hypokinesis of the basil to mid inferior wall. Vitals Vitals Vital Signs Date Time Temp Pulse Resp B/P Pulse Ox O2 Delivery O2 Flow Rate FiO2 03/01/17 09:21 77 145/60 03/01/17 07:00 20 98 Room Air 03/01/17 04:00 97.8 97.8 Physical Exam General: Alert, Cooperative, No acute distress Heart: Regular rate, No murmurs Lungs: Clear, Other (no wheezing) Abdomen: Soft, No tenderness Extremities: No cyanosis, Normal pulses Skin: No rashes, No significant lesion Labs LABS Laboratory Tests Test 02/28/17 12:33 02/28/17 14:35 02/28/17 16:12 02/28/17 21:10 Glucose (Fingerstick) 296mg/dL (70-99) 278mg/dL (70-99) 235mg/dL (70-99) Troponin I Quantitative 50.370ng/mL (0.000-0.055) Test 03/01/17 05:30 03/01/17 07:51 White Blood Count 6.9x10^3/uL (4.0-11.0) Red Blood Count 3.57x10^6/uL (3.50-5.40) Hemoglobin 10.4g/dL (12.0-15.5) Hematocrit 31.0% (36.0-47.0) Mean Corpuscular Volume 87fL (79-100) Mean Corpuscular Hemoglobin 29pg (25-35) Mean Corpuscular Hemoglobin Concent 34g/dL (31-37) Red Cell Distribution Width 14.1% (11.5-14.5) Platelet Count 183x10^3/uL (140-400) Neutrophils (%) (Auto) 61% (31-73) Lymphocytes (%) (Auto) 26% (24-48) Monocytes (%) (Auto) 12% (0-9) Eosinophils (%) (Auto) 1% (0-3) Basophils (%) (Auto) 0% (0-3) Neutrophils # (Auto) 4.2x10^3uL (1.8-7.7) Lymphocytes # (Auto) 1.8x10^3/uL (1.0-4.8) Monocytes # (Auto) 0.8x10^3/uL (0.0-1.1) Eosinophils # (Auto) 0.1x10^3/uL (0.0-0.7) Basophils # (Auto) 0.0x10^3/uL (0.0-0.2) Sodium Level 142mmol/L (136-145) Potassium Level 3.7mmol/L (3.5-5.1) Chloride Level 106mmol/L (98-107) Carbon Dioxide Level 24mmol/L (21-32) Anion Gap 12 (6-14) Blood Urea Nitrogen 17mg/dL (7-20) Creatinine 1.3mg/dL (0.6-1.0) Estimated GFR (Cockcroft-Gault) 39.4 Glucose Level 188mg/dL (70-99) Calcium Level 9.6mg/dL (8.5-10.1) Glucose (Fingerstick) 160mg/dL (70-99) Review of Systems Review of Systems Feeling much better. Denies chest pain and shortness of breath. Afebrile. Assessment and Plan Assessmemt and Plan Problems Medical Problems: (1) Chest pain Status: Acute (2) STEMI (ST elevation myocardial infarction) Status: Acute ASSESSMENT: STEMI Right Coronary Artery stent placement HTN Diabetes Dementia Mild Anemia PLAN: Cardiology is following, their recommendations are appreciated Continue cardiac monitoring, hopeful to transfer from ICU if cardiology agrees Trend troponins Continue pain management Continue insulin and blood glucose monitoring PT/OT Trend daily labs Problems: Comment Review of Relevant I have reviewed the following items thelma (where applicable) has been applied. Labs Laboratory Tests Test 02/28/17 02:20 02/28/17 02:23 02/28/17 03:34 02/28/17 04:40 White Blood Count 6.5x10^3/uL (4.0-11.0) Red Blood Count 4.18x10^6/uL (3.50-5.40) Hemoglobin 12.1g/dL (12.0-15.5) Hematocrit 36.6% (36.0-47.0) Mean Corpuscular Volume 88fL (79-100) Mean Corpuscular Hemoglobin 29pg (25-35) Mean Corpuscular Hemoglobin Concent 33g/dL (31-37) Red Cell Distribution Width 14.6% (11.5-14.5) Platelet Count 170x10^3/uL (140-400) Neutrophils (%) (Auto) 52% (31-73) Lymphocytes (%) (Auto) 35% (24-48) Monocytes (%) (Auto) 11% (0-9) Eosinophils (%) (Auto) 2% (0-3) Basophils (%) (Auto) 1% (0-3) Neutrophils # (Auto) 3.3x10^3uL (1.8-7.7) Lymphocytes # (Auto) 2.3x10^3/uL (1.0-4.8) Monocytes # (Auto) 0.7x10^3/uL (0.0-1.1) Eosinophils # (Auto) 0.1x10^3/uL (0.0-0.7) Basophils # (Auto) 0.0x10^3/uL (0.0-0.2) Sodium Level 140mmol/L (136-145) Potassium Level 3.4mmol/L (3.5-5.1) Chloride Level 103mmol/L (98-107) Carbon Dioxide Level 26mmol/L (21-32) Anion Gap 11 (6-14) Blood Urea Nitrogen 20mg/dL (7-20) Creatinine 1.3mg/dL (0.6-1.0) Estimated GFR (Cockcroft-Gault) 39.4 Glucose Level 300mg/dL (70-99) Calcium Level 9.6mg/dL (8.5-10.1) Total Bilirubin 0.2mg/dL (0.2-1.0) Direct Bilirubin 0.1mg/dL (0.0-0.2) Aspartate Amino Transf (AST/SGOT) 19U/L (15-37) Alanine Aminotransferase (ALT/SGPT) 26U/L (14-59) Alkaline Phosphatase 59U/L (46-116) Troponin I Quantitative < 0.017ng/mL (0.000-0.055) AK-Phb-I-Type Natriuretic Peptide 99pg/mL (0-449) Total Protein 6.9g/dL (6.4-8.2) Albumin 3.6g/dL (3.4-5.0) Lipase 368U/L (73-393) Bedside Troponin I 0.00ng/ml (<0.08) Activated Clotting Time 204sec (92-181) Nasal Screen MRSA (PCR) Negative (Negative) Test 02/28/17 07:32 02/28/17 08:32 02/28/17 12:33 02/28/17 14:35 Activated Clotting Time 150SEC (90-125) White Blood Count 8.4x10^3/uL (4.0-11.0) Red Blood Count 4.24x10^6/uL (3.50-5.40) Hemoglobin 12.0g/dL (12.0-15.5) Hematocrit 36.9% (36.0-47.0) Mean Corpuscular Volume 87fL (79-100) Mean Corpuscular Hemoglobin 28pg (25-35) Mean Corpuscular Hemoglobin Concent 33g/dL (31-37) Red Cell Distribution Width 14.4% (11.5-14.5) Platelet Count 202x10^3/uL (140-400) Neutrophils (%) (Auto) 79% (31-73) Lymphocytes (%) (Auto) 14% (24-48) Monocytes (%) (Auto) 7% (0-9) Eosinophils (%) (Auto) 0% (0-3) Basophils (%) (Auto) 0% (0-3) Neutrophils # (Auto) 6.6x10^3uL (1.8-7.7) Lymphocytes # (Auto) 1.1x10^3/uL (1.0-4.8) Monocytes # (Auto) 0.6x10^3/uL (0.0-1.1) Eosinophils # (Auto) 0.0x10^3/uL (0.0-0.7) Basophils # (Auto) 0.0x10^3/uL (0.0-0.2) Sodium Level 139mmol/L (136-145) Potassium Level 3.9mmol/L (3.5-5.1) Chloride Level 101mmol/L (98-107) Carbon Dioxide Level 25mmol/L (21-32) Anion Gap 13 (6-14) Blood Urea Nitrogen 18mg/dL (7-20) Creatinine 1.2mg/dL (0.6-1.0) Estimated GFR (Cockcroft-Gault) 43.2 Glucose Level 335mg/dL (70-99) Calcium Level 9.7mg/dL (8.5-10.1) Magnesium Level 1.5mg/dL (1.8-2.4) Troponin I Quantitative 65.366ng/mL (0.000-0.055) 50.370ng/mL (0.000-0.055) Triglycerides Level 272mg/dL (0-150) Cholesterol Level 251mg/dL (0-200) LDL Cholesterol, Calculated 145mg/dL (0-100) VLDL Cholesterol, Calculated 54mg/dL (0-40) HDL Cholesterol 52mg/dL (40-60) Cholesterol/HDL Ratio 4.8 Glucose (Fingerstick) 296mg/dL (70-99) Test 02/28/17 16:12 02/28/17 21:10 03/01/17 05:30 03/01/17 07:51 Glucose (Fingerstick) 278mg/dL (70-99) 235mg/dL (70-99) 160mg/dL (70-99) White Blood Count 6.9x10^3/uL (4.0-11.0) Red Blood Count 3.57x10^6/uL (3.50-5.40) Hemoglobin 10.4g/dL (12.0-15.5) Hematocrit 31.0% (36.0-47.0) Mean Corpuscular Volume 87fL (79-100) Mean Corpuscular Hemoglobin 29pg (25-35) Mean Corpuscular Hemoglobin Concent 34g/dL (31-37) Red Cell Distribution Width 14.1% (11.5-14.5) Platelet Count 183x10^3/uL (140-400) Neutrophils (%) (Auto) 61% (31-73) Lymphocytes (%) (Auto) 26% (24-48) Monocytes (%) (Auto) 12% (0-9) Eosinophils (%) (Auto) 1% (0-3) Basophils (%) (Auto) 0% (0-3) Neutrophils # (Auto) 4.2x10^3uL (1.8-7.7) Lymphocytes # (Auto) 1.8x10^3/uL (1.0-4.8) Monocytes # (Auto) 0.8x10^3/uL (0.0-1.1) Eosinophils # (Auto) 0.1x10^3/uL (0.0-0.7) Basophils # (Auto) 0.0x10^3/uL (0.0-0.2) Sodium Level 142mmol/L (136-145) Potassium Level 3.7mmol/L (3.5-5.1) Chloride Level 106mmol/L (98-107) Carbon Dioxide Level 24mmol/L (21-32) Anion Gap 12 (6-14) Blood Urea Nitrogen 17mg/dL (7-20) Creatinine 1.3mg/dL (0.6-1.0) Estimated GFR (Cockcroft-Gault) 39.4 Glucose Level 188mg/dL (70-99) Calcium Level 9.6mg/dL (8.5-10.1) Laboratory Tests Test 02/28/17 12:33 02/28/17 14:35 02/28/17 16:12 02/28/17 21:10 Glucose (Fingerstick) 296mg/dL (70-99) 278mg/dL (70-99) 235mg/dL (70-99) Troponin I Quantitative 50.370ng/mL (0.000-0.055) Test 03/01/17 05:30 03/01/17 07:51 White Blood Count 6.9x10^3/uL (4.0-11.0) Red Blood Count 3.57x10^6/uL (3.50-5.40) Hemoglobin 10.4g/dL (12.0-15.5) Hematocrit 31.0% (36.0-47.0) Mean Corpuscular Volume 87fL (79-100) Mean Corpuscular Hemoglobin 29pg (25-35) Mean Corpuscular Hemoglobin Concent 34g/dL (31-37) Red Cell Distribution Width 14.1% (11.5-14.5) Platelet Count 183x10^3/uL (140-400) Neutrophils (%) (Auto) 61% (31-73) Lymphocytes (%) (Auto) 26% (24-48) Monocytes (%) (Auto) 12% (0-9) Eosinophils (%) (Auto) 1% (0-3) Basophils (%) (Auto) 0% (0-3) Neutrophils # (Auto) 4.2x10^3uL (1.8-7.7) Lymphocytes # (Auto) 1.8x10^3/uL (1.0-4.8) Monocytes # (Auto) 0.8x10^3/uL (0.0-1.1) Eosinophils # (Auto) 0.1x10^3/uL (0.0-0.7) Basophils # (Auto) 0.0x10^3/uL (0.0-0.2) Sodium Level 142mmol/L (136-145) Potassium Level 3.7mmol/L (3.5-5.1) Chloride Level 106mmol/L (98-107) Carbon Dioxide Level 24mmol/L (21-32) Anion Gap 12 (6-14) Blood Urea Nitrogen 17mg/dL (7-20) Creatinine 1.3mg/dL (0.6-1.0) Estimated GFR (Cockcroft-Gault) 39.4 Glucose Level 188mg/dL (70-99) Calcium Level 9.6mg/dL (8.5-10.1) Glucose (Fingerstick) 160mg/dL (70-99) Medications Current Medications Nitroglycerin (Nitrostat) 0.4 mg STK-MED ONCE SL ; Start 02/28/17 at 02:10; Stop 02/28/17 at 02:11; Status DC Heparin Sodium (Porcine) 10,000 unit STK-MED ONCE .ROUTE ; Start 02/28/17 at 02: 10; Stop 02/28/17 at 02:11; Status DC Aspirin (Children'S Aspirin) 81 mg 1X ONCE PO ; Start 02/28/17 at 02:30; Stop 02/28/17 at 02:31; Status DC Nitroglycerin (Nitrostat) 0.4 mg PRN Q5MIN PRN SL CHEST PAIN Last administered on 02/28/17 02:11; Start 02/28/17 at 02:15; Stop 02/28/17 at 04:24; Status DC Morphine Sulfate 2 mg PRN Q1HR PRN IV SEVERE PAIN; Start 02/28/17 at 02:15; Stop 02/28/17 at 06:00; Status DC Heparin Sodium (Porcine) 4,000 unit 1X ONCE IV Last administered on 02/28/17 02:13; Start 02/28/17 at 02:30; Stop 02/28/17 at 02:31; Status DC Ondansetron HCl (Zofran) 4 mg PRN Q8HRS PRN IV NAUSEA/VOMITING; Start 02/28/17 at 02:45; Stop 02/28/17 at 02:45; Status DC Morphine Sulfate 2 mg PRN Q2HR PRN IV SEVERE PAIN; Start 02/28/17 at 02:45; Stop 03/01/17 at 02:44; Status DC Ondansetron HCl (Zofran) 4 mg PRN Q6HRS PRN IV NAUSEA/VOMITING; Start 02/28/17 at 02:45; Stop 03/01/17 at 02:44; Status DC Iohexol 100 ml 100 ml STK-MED ONCE .ROUTE ; Start 02/28/17 at 02:43; Stop at 02:44; Status DC Heparin Sodium/ Sodium Chloride 1,000 ml @ As Directed STK-MED ONCE .ROUTE ; Start 02/28/17 at 02:43; Stop 02/28/17 at 02:44; Status DC Lidocaine HCl 20 ml STK-MED ONCE .ROUTE ; Start 02/28/17 at 02:43; Stop at 02:44; Status DC Midazolam HCl (Versed) 2 mg STK-MED ONCE .ROUTE ; Start 02/28/17 at 02:44; Stop 02/28/17 at 02:45; Status DC Fentanyl Citrate (Fentanyl 2ml Vial) 100 mcg STK-MED ONCE .ROUTE ; Start at 02:44; Stop 02/28/17 at 02:45; Status DC Iohexol 100 ml 100 ml STK-MED ONCE .ROUTE ; Start 02/28/17 at 03:15; Stop at 03:16; Status DC Heparin Sodium/ Sodium Chloride 500 ml @ As Directed STK-MED ONCE .ROUTE ; Start 02/28/17 at 03:35; Stop 02/28/17 at 03:36; Status DC Heparin Sodium/ Sodium Chloride 1,000 unit 1X ONCE IART Last administered on 04:00; Start 02/28/17 at 03:45; Stop 02/28/17 at 03:46; Status DC Heparin Sodium/ Sodium Chloride 1,000 unit 1X ONCE IART Last administered on 04:00; Start 02/28/17 at 03:45; Stop 02/28/17 at 03:46; Status DC Midazolam HCl (Versed) 1 mg 1X ONCE IV Last administered on 02/28/17 04:01; Start 02/28/17 at 03:45; Stop 02/28/17 at 03:46; Status DC Fentanyl Citrate (Fentanyl 2ml Vial) 12.5 mcg 1X ONCE IV Last administered on 02/28/17 04:01; Start 02/28/17 at 03:45; Stop 02/28/17 at 03:46; Status DC Iohexol (Omnipaque 350 Mg/ml) 100 ml 1X ONCE IART Last administered on 03:59; Start 02/28/17 at 03:45; Stop 02/28/17 at 03:46; Status DC Heparin Sodium (Porcine) 2,000 unit 1X ONCE IV Last administered on 02/28/17 04:05; Start 02/28/17 at 03:45; Stop 02/28/17 at 03:46; Status DC Lidocaine HCl 20 ml 20 ml 1X ONCE IJ Last administered on 02/28/17 04:00; Start 02/28/17 at 03:45; Stop 02/28/17 at 03:46; Status DC Tirofiban/Sodium Chloride 100 ml @ 0 mls/hr 1X ONCE IV Last administered on 03:45; Start 02/28/17 at 03:45; Stop 02/28/17 at 03:46; Status DC Tirofiban/Sodium Chloride (Aggrastat 12.5 Mg/250 ml Premix) 250 ml @ 0 mls/hr CONT PRN IV PER PROTOCOL Last administered on 02/28/17 03:28; Start 02/28/17 at 03:29; Stop 02/28/17 at 06:00; Status DC Ticagrelor (Brilinta) 180 mg 1X ONCE PO Last administered on 02/28/17 04:05; Start 02/28/17 at 04:00; Stop 02/28/17 at 04:01; Status DC Aspirin (Children'S Aspirin) 81 mg 1X ONCE PO Last administered on 02/28/17 04:05; Start 02/28/17 at 04:00; Stop 02/28/17 at 04:01; Status DC Ticagrelor (Brilinta) 90 mg STK-MED ONCE .ROUTE ; Start 02/28/17 at 03:53; Stop 02/28/17 at 03:54; Status DC Sodium Chloride 3 ml 3 ml QSHIFT PRN IV AFTER MEDS AND BLOOD DRAWS; Start 02/28 at 04:15 Sodium Chloride 1,000 ml @ 75 mls/hr [id number] IV Last administered on 21:11; Start 02/28/17 at 04:09; Stop 03/01/17 at 08:10; Status DC Tirofiban/Sodium Chloride (Aggrastat 12.5 Mg/250 ml Premix) 250 ml @ 0 mls/hr CONT PRN IV PER PROTOCOL; Start 02/28/17 at 04:15; Stop 02/28/17 at 22:14; Status DC Aspirin (Ecotrin) 81 mg [id number] PO Last administered on 03/01/17 08:04; Start 02/28/17 at 08:00 Ticagrelor (Brilinta) 90 mg BID PO Last administered on 03/01/17 09:20; Start 03/01/17 at 09:00 Metoprolol Tartrate (Lopressor) 12.5 mg BID PO Last administered on 02/28/17 10:33; Start 02/28/17 at 09:00; Stop 02/28/17 at 15:29; Status DC Lisinopril (Prinivil) 5 mg DAILY@13 PO Last administered on 02/28/17 12:55; Start 02/28/17 at 13:00; Stop 02/28/17 at 15:27; Status DC Atorvastatin Calcium (Lipitor) 20 mg QHS PO Last administered on 02/28/17 21: 02; Start 02/28/17 at 21:00 Acetaminophen (Tylenol) 650 mg PRN Q6HRS PRN PO MILD PAIN / TEMP; Start at 04:15 Fentanyl Citrate (Fentanyl 2ml Vial) 50 mcg PRN Q1HR PRN IV MODERATE OR SEVERE PAIN; Start 02/28/17 at 04:15 Cyclobenzaprine HCl (Flexeril) 10 mg PRN TID PRN PO MUSCLE SPASMS Last administered on 02/28/17 21:03; Start 02/28/17 at 04:15 Nitroglycerin 0.4 mg 0.4 mg PRN Q5MIN PRN SL CHEST PAIN; Start 02/28/17 at 04: 15 Amiodarone HCl/ Dextrose (Cordarone) 103 ml @ 10 mls/min 1X PRN PRN IV FOR VENTRICULAR TACHYCARDIA; Start 02/28/17 at 04:15; Stop 03/01/17 at 08:10; Status DC Lidocaine HCl 100 mg 1X PRN PRN IV FOR VENTRICULAR TACHYCARDIA; Start 02/28/17 at 04:15 Atropine Sulfate 0.5 mg PRN 1X PRN IV BRADYCARDIA; Start 02/28/17 at 04:15 Oxycodone/ Acetaminophen (Percocet 5/325) 1 tab PRN Q4HRS PRN PO MODERATE - SEVERE PAIN; Start 02/28/17 at 04:15 Amlodipine Besylate (Norvasc) 5 mg 1X ONCE PO Last administered on 02/28/17 05:11; Start 02/28/17 at 05:00; Stop 02/28/17 at 05:01; Status DC Calcitriol (Rocaltrol) 0.25 mcg DAILY PO Last administered on 03/01/17 08:04; Start 02/28/17 at 12:00; Stop 03/01/17 at 11:14; Status DC Glipizide (Glucotrol) 5 mg DAILY08 PO Last administered on 03/01/17 08:04; Start 02/28/17 at 11:00 Lisinopril (Prinivil) 20 mg DAILY PO ; Start 02/28/17 at 12:00; Status UNV Potassium Chloride (Klor-Con) 20 meq DAILY08 PO ; Start 02/28/17 at 11:00; Stop 02/28/17 at 11:00; Status DC Tramadol HCl (Ultram) 50 mg PRN Q6HRS PRN PO MILD PAIN; Start 02/28/17 at 10:45 Fenofibrate (Lofibra) 134 mg DAILY PO Last administered on 03/01/17 08:04; Start 02/28/17 at 12:00 Insulin Detemir (Levemir) 14 units QHS SQ Last administered on 02/28/17 21:12 ; Start 02/28/17 at 21:00 Pantoprazole Sodium (Protonix) 40 mg DAILYAC PO Last administered on 02/28/17 12:55; Start 02/28/17 at 12:00; Stop 03/01/17 at 04:44; Status DC Potassium Chloride (Klor-Con) 40 meq 1X ONCE PO Last administered on 12:55; Start 02/28/17 at 10:45; Stop 02/28/17 at 10:47; Status DC Potassium Chloride (Klor-Con) 20 meq DAILY08 PO Last administered on 03/01/17 08:05; Start 03/01/17 at 08:00 Lisinopril (Prinivil) 10 mg DAILY PO ; Start 03/01/17 at 16:00 Metoprolol Tartrate (Lopressor) 25 mg BID PO Last administered on 02/28/17 21: 03; Start 02/28/17 at 21:00; Stop 03/01/17 at 04:44; Status DC Insulin Aspart (Novolog) 0-7 UNITS TIDWMEALS SQ Last administered on 03/01/17 08:07; Start 02/28/17 at 17:00 Dextrose 12.5 gm PRN Q15MIN PRN IV SEE COMMENTS; Start 02/28/17 at 16:15 Metoprolol Tartrate (Lopressor) 25 mg BID PO Last administered on 03/01/17 09: 21; Start 03/01/17 at 09:00 Pantoprazole Sodium (Protonix) 40 mg DAILYAC PO Last administered on 03/01/17 08:04; Start 03/01/17 at 07:30 Tirofiban/Sodium Chloride (Aggrastat 12.5 Mg/250 ml Premix) 12.5 mg STK-MED ONCE IV ; Start 02/28/17 at 04:00; Stop 03/01/17 at 06:41; Status DC Heparin Sodium (Porcine) 10,000 unit STK-MED ONCE .ROUTE ; Start 02/28/17 at 04: 00; Stop 03/01/17 at 06:41; Status DC Glipizide (Glucotrol) 5 mg STK-MED ONCE .ROUTE ; Start 03/01/17 at 07:04; Stop 03/01/17 at 07:05; Status DC Active Scripts Active Reported Tramadol Hcl 50 Mg Tablet 1 Tab PO PRN Q6HRS Lisinopril 20 Mg Tablet 1 Tab PO DAILY Glipizide 5 Mg Tablet 1 Tab PO DAILY Klor-Con M20 (Potassium Chloride) 20 Meq Tab.er.prt 1 Tab PO DAILY Omeprazole 20 Mg Capsule.dr 1 Cap PO DAILY Calcitriol 0.25 Mcg Capsule 1 Cap PO DAILY Fenofibrate (Fenofibrate Nanocrystallized) 145 Mg Tablet 1 Tab PO DAILY Lantus Solostar (Insulin Glargine,Hum.rec.anlog) 100 Unit/1 Ml Insuln.pen 14 Unit SQ QHS Vitals/I & O Vital Sign - Last 24 Hours 02/28/17 02/28/17 02/28/17 02/28/17 12:00 12:55 13:00 14:00 Pulse 66 59 60 60 Resp 17 20 23 B/P 147/94 156/64 137/88 150/ Pulse Ox 97 98 O2 Delivery Room Air Room Air Room Air 02/28/17 02/28/17 02/28/17 02/28/17 15:00 16:00 17:00 18:00 Temp 98.5 98.5 Pulse 78 77 80 72 Resp 14 16 20 15 B/P 140/68 158/74 149/70 152/60 O2 Delivery Room Air Room Air Room Air Room Air 02/28/17 02/28/17 02/28/17 02/28/17 19:00 20:00 21:00 21:03 Temp 98.0 98.0 Pulse 72 67 72 67 Resp 15 18 18 B/P 140/62 143/64 148/64 143/64 Pulse Ox 98 98 O2 Delivery Room Air Room Air Room Air 02/28/17 02/28/17 03/01/17 03/01/17 22:00 23:00 00:00 01:00 Temp 97.7 97.7 Pulse 64 74 66 66 Resp 24 18 22 22 B/P 127/70 126/60 133/62 117/66 Pulse Ox 100 98 100 O2 Delivery Room Air Room Air Room Air Room Air 03/01/17 03/01/17 03/01/17 03/01/17 02:00 03:00 04:00 05:00 Temp 97.8 97.8 Pulse 71 67 66 68 Resp 20 27 22 21 B/P 140/63 134/64 139/65 136/64 Pulse Ox 98 O2 Delivery Room Air Room Air Room Air Room Air 03/01/17 03/01/17 03/01/17 06:00 07:00 09:21 Pulse 79 77 77 Resp 21 20 B/P 141/61 145/60 145/60 Pulse Ox 98 O2 Delivery Room Air Room Air Intake and Output 02/28/17 02/28/17 03/01/17 15:00 23:00 07:00 Intake Total 1100 ml 1572 ml Output Total 450 ml 1000 ml 550 ml Balance 650 ml 572 ml -550 ml LEONORA DUVALL III DO Mar 01, 2017 11:25
--- NOTE | 2017-03-01 15:22 | EKG ---
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
[2017-03-01] MEDS ORDERED: ATORVASTATIN CALCIUM 40 MG TABLET. PO SCH (21:00)
[2017-03-01] MEDS: INSULIN DETEMIR 300 UNITS/3 ML INSULN.PEN. SQ SCH (21:10)
[2017-03-02] VITALS: BP 125/59
[2017-03-02 04:00] VITALS: BP 131/66
[2017-03-02 05:50] LABS: BASO % 1 % (0-3); EOS % 3 % (0-3); HEMATOCRIT 31.4 % (36.0-47.0); HEMOGLOBIN 10.7 g/dL (12.0-15.5); LYMPH % 30 % (24-48); MEAN CORPUSCULAR HEMOGLOBIN 29 pg (25-35); MEAN CORPUSCULAR HGB CONC 34 g/dL (31-37); MEAN CORPUSCULAR VOLUME 86 fL (79-100); MONO % 13 % (0-9); NEUT % 54 % (31-73); PLATELET COUNT 178 x10^3/uL (140-400); RED BLOOD COUNT 3.66 x10^6/uL (3.50-5.40); RED CELL DISTRIBUTION WIDTH 14.2 % (11.5-14.5); WHITE BLOOD COUNT 6.6 x10^3/uL (4.0-11.0)
[2017-03-02 06:10] LABS: CALCIUM 9.8 mg/dL (8.5-10.1); CREATININE 1.4 mg/dL (0.6-1.0); GFR 36.2; POTASSIUM 3.9 mmol/L (3.5-5.1)
[2017-03-02] MEDS ORDERED: GLIPIZIDE 5 MG TABLET. ONE (07:44)
[2017-03-02 08:00] VITALS: BP 131/69
[2017-03-02] MEDS: LISINOPRIL 10 MG TABLET PO SCH ×2 (08:40→08:58)
[2017-03-02] MEDS: PANTOPRAZOLE 40 MG TABLET.DR. PO SCH (08:40)
[2017-03-02] MEDS: ASPIRIN ENTERIC COATED 81 MG TABLET.DR. PO SCH (08:40)
[2017-03-02] MEDS: TICAGRELOR 90 MG TABLET. PO SCH (08:41)
[2017-03-02] MEDS: POTASSIUM CHLORIDE 20 MEQ TABLET.ER. PO SCH (08:41)
[2017-03-02] MEDS: GLIPIZIDE 5 MG TABLET PO SCH (08:41)
[2017-03-02] MEDS: FENOFIBRATE,MICRONIZED 134 MG CAPSULE PO SCH (08:41)
[2017-03-02 08:43] LABS: BILIRUBIN,URINE NEGATIVE (NEG); GLUCOSE,URINE NEGATIVE (NEG); NITRITE,URINE NEGATIVE (NEG); PROTEIN,URINE NEGATIVE (NEG-TRACE); UROBILINOGEN,URINE 0.2 mg/dL (0.2 mg/dL)
[2017-03-02] MEDS: INSULIN ASPART 300 UNITS/3 ML INSULN.PEN SQ SCH ×2 (08:47→09:00)
[2017-03-02 08:51] LABS: BACTERIA,URINE MODERATE /HPF (0-FEW); RBC,URINE OCC /HPF (0-2); SQUAMOUS EPITHELIAL CELL,UR MOD /LPF
[2017-03-02] MEDS: METOPROLOL TART IMMED RELEASE 25 MG TABLET. PO SCH (08:57)
--- NOTE | 2017-03-02 09:30 | PDOC ---
CARDIO Progress Notes Date and Time Date of Service 03/02/2017 Time of Evaluation 09 Subjective Subjective: No Chest Pain, No shortness of breath, No Palpitations, No Dizziness Comments: pleasant Vitals Vitals Vital Signs Date Time Temp Pulse Resp B/P Pulse Ox O2 Delivery O2 Flow Rate FiO2 03/02/17 08:58 80 131/69 03/02/17 04:00 97.5 17 Room Air 97.5 03/01/17 07:00 98 Weight Weight [ ] Input and Output Intake and Output Intake and Output 03/02/17 06:59 Intake Total 1485 ml Output Total 350 ml Balance 1135 ml Intake Oral 1485 ml Output Urine Total 350 ml # Voids 8 # Bowel Movements 1 Laboratory Labs Laboratory Tests Test 03/01/17 11:41 03/01/17 17:28 03/01/17 21:08 03/02/17 05:00 Glucose (Fingerstick) 237mg/dL (70-99) 122mg/dL (70-99) 236mg/dL (70-99) White Blood Count 6.6x10^3/uL (4.0-11.0) Red Blood Count 3.66x10^6/uL (3.50-5.40) Hemoglobin 10.7g/dL (12.0-15.5) Hematocrit 31.4% (36.0-47.0) Mean Corpuscular Volume 86fL (79-100) Mean Corpuscular Hemoglobin 29pg (25-35) Mean Corpuscular Hemoglobin Concent 34g/dL (31-37) Red Cell Distribution Width 14.2% (11.5-14.5) Platelet Count 178x10^3/uL (140-400) Neutrophils (%) (Auto) 54% (31-73) Lymphocytes (%) (Auto) 30% (24-48) Monocytes (%) (Auto) 13% (0-9) Eosinophils (%) (Auto) 3% (0-3) Basophils (%) (Auto) 1% (0-3) Neutrophils # (Auto) 3.6x10^3uL (1.8-7.7) Lymphocytes # (Auto) 2.0x10^3/uL (1.0-4.8) Monocytes # (Auto) 0.8x10^3/uL (0.0-1.1) Eosinophils # (Auto) 0.2x10^3/uL (0.0-0.7) Basophils # (Auto) 0.0x10^3/uL (0.0-0.2) Sodium Level 143mmol/L (136-145) Potassium Level 3.9mmol/L (3.5-5.1) Chloride Level 106mmol/L (98-107) Carbon Dioxide Level 27mmol/L (21-32) Anion Gap 10 (6-14) Blood Urea Nitrogen 18mg/dL (7-20) Creatinine 1.4mg/dL (0.6-1.0) Estimated GFR (Cockcroft-Gault) 36.2 Glucose Level 168mg/dL (70-99) Calcium Level 9.8mg/dL (8.5-10.1) Test 03/02/17 08:20 Urine Collection Type Unknown Urine Color Yellow Urine Clarity Clear Urine pH 7.0 Urine Specific [place] <=1.005 Urine Protein Negativemg/dL (NEG-TRACE) Urine Glucose (UA) Negativemg/dL (NEG) Urine Ketones (Stick) Negativemg/dL (NEG) Urine Blood Negative (NEG) Urine Nitrite Negative (NEG) Urine Bilirubin Negative (NEG) Urine Urobilinogen Dipstick 0.2mg/dL (0.2 mg/dL) Urine Leukocyte Esterase Moderate (NEG) Urine RBC Occ/HPF (0-2) Urine WBC 5-10/HPF (0-4) Urine Squamous Epithelial Cells Mod/LPF Urine Bacteria Moderate/HPF (0-FEW) Physical Exam HEENT: Neck Supple W Full Motion Chest: Symmetric LUNGS: Clear to Auscultation Heart: S1S2, RRR, no murmurs, other (tele: SR) Abdomen: Soft N/T Extremities: 2+ Dorsalis Pedis, No Edema, No Calf Tenderness Neurology: alert, follow commands, confused Assessment Assessment 1. STEMI 2. CAD s/p PCI/BMS to RCA DAPT for at least 30 days; then daily ASA; preferably DAPT X 1 yr 3. Ascending aortic aneurysm; 3.9 cm per echo follow in the outpt setting 4. Hypertension control with meds 5. Hyperlipidemia continue statin therapy, high dose 6. Diabetes per primary 7. CKD Agreeable with discharge; follow up with PMG - Cardiology in 4 weeks [employer]IST Mar 02, 2017 09:30
[2017-03-02] MEDS ORDERED: ATOR40TA59 PO (09:33)
[2017-03-02] MEDS ORDERED: ASPI81TA9 PO (09:33)
[2017-03-02] MEDS ORDERED: TICA90TA PO (09:33)
[2017-03-02] MEDS ORDERED: METO25TA4 PO (09:33)
[2017-03-02 11:25] VITALS: BP 127/58
[2017-03-02] MEDS ORDERED: DEXTROSE 25% 10 ML DISP.SYRIN. IV PRN (13:44)
[2017-03-02] MEDS ORDERED: LIDOCAINE 2% 100 MG/5 ML SYRINGE. IV PRN (13:46)
[2017-03-03] MEDS ORDERED: GLIPIZIDE 5 MG TABLET. PO SCH (08:00)
--- NOTE | 2017-03-04 09:31 | CARD ---
APPROVED REPORT Procedures. Left heart catheterization. Left ventriculogram. Selective coronary angiogram. Bare metal stent to an occluded mid right coronary artery. The patient is an 81-year-old female who was brought to the emergency room after an episode of chest discomfort. EKG was performed and suggested an acute inferior ST elevated myocardial infarction. Hepa rin and aspirin were given in the emergency room. This and benefits of an emergency catheterization were discussed and consent was obtained. After the patient was brought to the catheterization lab the area of the right femoral artery was pr epared in the usual manner with Betadine, sterile draping and local anesthetic. An 18-gauge needle wa s used to enter the right femoral artery, a wire placed and a 6 Samoan sheath placed over the wire. W ith the assistance of the J-wire, a 6 Samoan JL4 diagnostic catheter was advanced to the ascending ao rta. It was used to engage the left system and sequential injections were obtained. A 6 Samoan JR4 g uide with side holes was then advanced the ascending aorta and used to engage the right system. The r ight coronary improved to have a total mid occlusion. We proceeded to revascularize the RCA. Angiomax as per protocol was administered. A PT choice wire was used to cross the lesion. Initial inf lation with a 2.5 x 15 Trek balloon with 2 inflations at 8 aryan for 20 seconds. A 3.0 x 23 MultiLink v ision bare metal stent was then deployed with one inflation at 15 aryan for 15 seconds. Residual lesion was 0%. The wire and the guiding system were removed. A pigtail catheter was advanced the ascending aorta and the left ventricle. Pressures were obtained. A 30 TORREZ left ventriculogram was performed. P ullback pressures were measured. The catheter was removed from the patient. The sheath was then sutur ed into place and the patient was moved to the holding area in stable condition. Findings. Hemodynamics. LV pressure of 167/28, aortic root pressure 167/68. Coronaries. Left main. The left main had no lesions. Left anterior descending. The LAD had a proximal 20% lesion. Left circumflex. The left circumflex had a mid 15% lesion. Right coronary artery. The right coronary artery had an ostial 20-25% lesion and mid occlusion. Left ventriculogram. Ejection fraction was 55% with minimal inferior wall hypokinesis. The aortic root was also moderately enlarged. <Conclusion> Right coronary artery with a mid occlusion. Stenting to the right coronary artery with 0% residual lesion. Mild disease in the remaining vessels. LV ejection fraction of 55% with minimal inferior wall hypokinesis. Moderately enlarged aortic root.
== END 2017-03-02 14:15 | disposition home or self-care (01) | DRG 249 ==
LOC: ER 02:03 → 1 WEST ICU 04:10
PROVIDERS: ADMIT Internal Medicine Hematology & Oncology; ATTEND Internal Medicine Hematology & Oncology
PROC: 4A023N7 Measurement of Cardiac Sampling and Pressure, Left Heart, Percutaneous Approach (ICD-10-PCS; principal; 2017-02-28)
PROC: 02703DZ Dilation of Coronary Artery, One Artery with Intraluminal Device, Percutaneous Approach (ICD-10-PCS; 2017-02-28)
PROC: B2101ZZ Fluoroscopy of Single Coronary Artery using Low Osmolar Contrast (ICD-10-PCS; 2017-02-28)
PROC: B2151ZZ Fluoroscopy of Left Heart using Low Osmolar Contrast (ICD-10-PCS; 2017-02-28)
DX: I21.19 ST elevation (STEMI) myocardial infarction involving other coronary artery of inferior wall (principal); J96.10 Chronic respiratory failure, unspecified whether with hypoxia or hypercapnia; I25.10 Atherosclerotic heart disease of native coronary artery without angina pectoris; F03.90 Unspecified dementia, unspecified severity, without behavioral disturbance, psychotic disturbance, mood disturbance, and anxiety; E78.5 Hyperlipidemia, unspecified; E78.00 Pure hypercholesterolemia, unspecified; E11.22 Type 2 diabetes mellitus with diabetic chronic kidney disease; D64.9 Anemia, unspecified; I12.9 Hypertensive chronic kidney disease with stage 1 through stage 4 chronic kidney disease, or unspecified chronic kidney disease; I71.2 Thoracic aortic aneurysm, without rupture; K21.9 Gastro-esophageal reflux disease without esophagitis; E83.51 Hypocalcemia; N18.9 Chronic kidney disease, unspecified; Z82.49 Family history of ischemic heart disease and other diseases of the circulatory system; Z95.5 Presence of coronary angioplasty implant and graft
CPT/HCPCS: 36415; 71010; 80048; 80061; 80076; 81001; 82947; 83690; 83735; 83880; 84484; 85027; 85347; 87086; 87641; 92941; 93005; 93306; 93458; 96374; C1725; C1769; C1877; C1887; C1892; J1815; J2250; J3010; J7030; Q9967; 99285-25; J3246

== ENCOUNTER 2017-03-04 14:50 | Inpatient (IN) | payer MEDICARE, BC ==
[~2017-03-04] VITALS: Ht 149.9 cm; Wt 64.5 kg
[~2017-03-04 14:50] MED LIST: ASPI81TA9 PO; ATOR40TA59 PO; CALC0.25 PO; FENO145T2 PO; GLIP5TAB10 PO; INSU100I13 SQ; LISI-334 PO; METO25TA4 PO; OMEP20CA9 PO; POTA20TA4 PO; TICA90TA PO; TRAM50TA PO
--- NOTE | 2017-03-04 15:28 | EKG ---
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
--- NOTE | 2017-03-04 15:38 | RAD ---
Exam: AP portable chest. History: Chest pain. Comparison: 02/28/2017. Findings: The heart and mediastinal structures are within normal limits for size. Lungs are without infiltrate. No pneumothorax or pleural effusion is appreciated. Aortic atherosclerosis is seen. Impression: 1. No acute cardiopulmonary process.
[2017-03-04] MEDS ORDERED: ASPIRIN 81 MG TAB.CHEW PO ONE (16:00)
[2017-03-04 16:08] LABS: BASO % 1 % (0-3); EOS % 4 % (0-3); HEMATOCRIT 27.4 % (36.0-47.0); LYMPH # 1.5 x10^3/uL (1.0-4.8); LYMPH % 26 % (24-48); MEAN CORPUSCULAR HEMOGLOBIN 29 pg (25-35); MEAN CORPUSCULAR HGB CONC 33 g/dL (31-37); MEAN CORPUSCULAR VOLUME 88 fL (79-100); MONO % 12 % (0-9); NEUT % 58 % (31-73); PLATELET COUNT 180 x10^3/uL (140-400); WHITE BLOOD COUNT 5.7 x10^3/uL (4.0-11.0)
[2017-03-04] MEDS ORDERED: ASPIRIN CHEWABLE 81 MG TABLET. PO ONE (16:15)
[2017-03-04] MEDS ORDERED: ONDANSETRON PF 4 MG/2 ML VIAL. IV PRN ×2 (16:15→18:43)
[2017-03-04 16:16] LABS: INR 1.1 (0.8-1.1); PROTHROMBIN TIME PATIENT 13.7 SEC (11.7-14.0)
--- NOTE | 2017-03-04 16:19 | PHYS DOC ---
Past Medical History Past Medical History: Dementia, Diabetes-Type II, High Cholesterol, Hypertension Additional Past Medical Histor: LOW CALCIUM, cardiac stent x 1 Past Surgical History: No Surgical History Alcohol Use: None Drug Use: None Adult General Chief Complaint Chief Complaint: SHORTNESS OF BREATH HPI HPI 81-year-old female with a history of a recent STEMI with stent placement presents today with several hour history of chest discomfort. She states the pain is not quite as bad as it was when she had her heart attack. On arrival to the emergency department she states her pain had resolved. The daughter who is one of her primary caregivers states that she was left alone for the first time today and she thinks she may have become anxious as the cause for some of her pain. She denies any fever chills or sweats. She denies cough or congestion. She really can't articulate being shortness of breath.] Review of Systems Review of Systems Constitutional: Denies fever or chills [] Eyes: Denies change in visual acuity, redness, or eye pain [] HENT: Denies nasal congestion or sore throat [] Respiratory: Denies cough or shortness of breath [] Cardiovascular: No additional information not addressed in HPI [] GI: Denies abdominal pain, nausea, vomiting, bloody stools or diarrhea [] : Denies dysuria or hematuria [] Musculoskeletal: Denies back pain or joint pain [] Integument: Denies rash or skin lesions [] Neurologic: Denies headache, focal weakness or sensory changes [] Endocrine: Denies polyuria or polydipsia [] Current Medications Current Medications Current Medications Medications (Trade) Dose Ordered Sig/[facility] Start Time Stop Time Status Last Admin Dose Admin Aspirin (Children'S Aspirin) 324 mg 1X ONCE 03/04/17 16:15 03/04/17 16:16 DC 03/04/17 16:15 324 MG Ondansetron HCl (Zofran) 4 mg PRN Q8HRS PRN 03/04/17 16:15 03/04/17 18:45 DC Allergies Allergies Allergies Coded Allergies Type Severity Reaction Last Updated Verified No Known Drug Allergies 02/28/17 No Physical Exam Physical Exam Constitutional: Well developed, well nourished, no acute distress, non-toxic appearance. [] HENT: Normocephalic, atraumatic, bilateral external ears normal, oropharynx moist, no oral exudates, nose normal. [] Eyes: PERRLA, EOMI, conjunctiva normal, no discharge. [] Neck: Normal range of motion, no tenderness, supple, no stridor. [] Cardiovascular:Heart rate regular rhythm, no murmur [] Lungs & Thorax: Bilateral breath sounds clear to auscultation [] Abdomen: Bowel sounds normal, soft, no tenderness, no masses, no pulsatile masses. [] Skin: Warm, dry, no erythema, no rash. [] Back: No tenderness, no CVA tenderness. [] Extremities: No tenderness, no cyanosis, no clubbing, ROM intact, no edema. [] Neurologic: Alert and oriented X 3, normal motor function, normal sensory function, no focal deficits noted. [] Psychologic: Affect normal, judgement normal, mood normal. [] Current Patient Data Vital Signs Vital Signs Date Time Temp Pulse Resp B/P Pulse Ox O2 Delivery O2 Flow Rate FiO2 03/04/17 14:50 98.3 74 18 131/72 97 Room Air 98.3 Lab Values Laboratory Tests Test 03/04/17 15:55 White Blood Count 5.7x10^3/uL (4.0-11.0) Red Blood Count 3.10x10^6/uL (3.50-5.40) L Hemoglobin 9.0g/dL (12.0-15.5) L Hematocrit 27.4% (36.0-47.0) L Mean Corpuscular Volume 88fL (79-100) Mean Corpuscular Hemoglobin 29pg (25-35) Mean Corpuscular Hemoglobin Concent 33g/dL (31-37) Red Cell Distribution Width 14.0% (11.5-14.5) Platelet Count 180x10^3/uL (140-400) Neutrophils (%) (Auto) 58% (31-73) Lymphocytes (%) (Auto) 26% (24-48) Monocytes (%) (Auto) 12% (0-9) H Eosinophils (%) (Auto) 4% (0-3) H Basophils (%) (Auto) 1% (0-3) Neutrophils # (Auto) 3.3x10^3uL (1.8-7.7) Lymphocytes # (Auto) 1.5x10^3/uL (1.0-4.8) Monocytes # (Auto) 0.7x10^3/uL (0.0-1.1) Eosinophils # (Auto) 0.2x10^3/uL (0.0-0.7) Basophils # (Auto) 0.0x10^3/uL (0.0-0.2) Prothrombin Time 13.7SEC (11.7-14.0) Prothrombin Time INR 1.1 (0.8-1.1) Sodium Level 138mmol/L (136-145) Potassium Level 4.6mmol/L (3.5-5.1) Chloride Level 104mmol/L (98-107) Carbon Dioxide Level 23mmol/L (21-32) Anion Gap 11 (6-14) Blood Urea Nitrogen 28mg/dL (7-20) H Creatinine 1.9mg/dL (0.6-1.0) H Estimated GFR (Cockcroft-Gault) 25.4 BUN/Creatinine Ratio 15 (6-20) Glucose Level 373mg/dL (70-99) H Calcium Level 9.3mg/dL (8.5-10.1) Total Bilirubin 0.5mg/dL (0.2-1.0) Aspartate Amino Transferase (AST) 16U/L (15-37) Alanine Aminotransferase (ALT) 21U/L (14-59) Alkaline Phosphatase 61U/L (46-116) Troponin I Quantitative 1.855ng/mL (0.000-0.055) HU-[place]yo-J-Type Natriuretic Peptide 1142pg/mL (0-449) H Total Protein 6.3g/dL (6.4-8.2) L Albumin 3.0g/dL (3.4-5.0) L Albumin/Globulin Ratio 0.9 (1.0-1.7) L Laboratory Tests 03/04/17 15:55 Laboratory Tests 03/04/17 15:55 EKG EKG [EKG: Normal sinus rhythm rate of [address]-T changes] Radiology/Procedures Radiology/Procedures [Chest x-ray: No acute cardiopulmonary abnormality] Course & Med Decision Making Course & Med Decision Making Pertinent Labs and Imaging studies reviewed. (See chart for details) [ED course: Evaluation reveals an 81-year-old female at high risk for acute coronary syndrome. Patient was pain-free during her stay in the department. She was given an aspirin. Initial laboratory studies were reviewed I spoke with both our hospitalist as well as the formula checker and they think it's in the patient's best interest to be admitted to the hospital for further evaluation and close observation.] Dragon Disclaimer Dragon Disclaimer This electronic medical record was generated, in whole or in part, using a voice recognition dictation system. Departure Departure Impression: Primary Impression: Chest pain Disposition: 09 ADMITTED INPATIENT Admitting Physician: Leigh Summers Condition: STABLE Referrals: UNKNOWN PCP NAME (PCP) Problem Qualifiers Primary Impression: Chest pain Chest pain type: precordial pain Qualified Code: R07.2 - Precordial pain PERLA FITZPATRICK DO Mar 04, 2017 16:19
[2017-03-04 16:21] LABS: CALCIUM 9.3 mg/dL (8.5-10.1); CREATININE 1.9 mg/dL (0.6-1.0); GFR 25.4; POTASSIUM 4.6 mmol/L (3.5-5.1)
[2017-03-04 16:26] LABS: ALBUMIN/GLOBULIN RATIO 0.9 (1.0-1.7); TOTAL BILIRUBIN 0.5 mg/dL (0.2-1.0); TOTAL PROTEIN 6.3 g/dL (6.4-8.2)
--- NOTE | 2017-03-04 16:45 | ACF ---
Admission Forms Criteria CHEST PAIN Clinical Indications for Admission to Inpatient Care (Place 'X' for any and all applicable criteria): Admission is indicated for chest pain and ANY ONE of the following(1)(2)(3)(4)(5 ): [ ]I. Angina with acute coronary syndrome (Also use Myocardial Infarction or Angina guideline) [ ]II. Hemodynamic instability [ ]III. Angina needing acute intervention as indicated by ALL of the following( 11)(12): [ ]a) Unstable angina is present as indicated by angina that is ANY ONE of the following: [ ]i) New onset [ ]ii) Nocturnal [ ]iii) Prolonged at rest [ ]iv) Progressive [ ]b) Angina warrants acute intervention as indicated by ANY ONE of the following: [ ]i) Recurrent angina (e.g, not responding as previously to treatment) [ ]ii) Angina at rest or with low-level activities despite initial medical therapy [ ]iii) New or presumably new ST-segment depression on ECG [ ]iv) Signs or symptoms of heart failure (eg, dyspnea, pulmonary edema) [ ]v) New or worsening mitral regurgitation [ ]vi) Hemodynamic instability [ ]vii) Dangerous arrhythmia (eg, sustained ventricular tachycardia) [ ]viii) History of percutaneous coronary intervention within 6 months [ ]ix) History of coronary artery bypass graft surgery [ ]x) GIA risk score of 2 or greater[A] [ ]xi) History of Diabetes(14) [ ]xii) High-risk cardiac ischemia findings on noninvasive testing (e.g, echocardiogram, treadmill testing, nuclear scan) [ ]xiii) Chronic renal insufficiency (ie, estimated GFR less than 60 mL/min/1.732m) [ ]xiv) Left ventricular ejection fraction less than 40% [ ]IV. Evidence of [place] (eg, cardiac biomarkers positive, ST-segment elevation on ECG) also use Myocardial Infarction Criteria Form. [ ]V. Pulmonary edema [ ]. Respiratory distress [ ]VII. Chest pain indicative of serious diagnosis other than coronary artery disease (eg, aortic dissection) [ ]VIII. Contraindications and/or Inappropriate clinical situations for Observational Care in patients with Chest Pain, when ANY ONE of the following is required: [ ]a) Patient with risk factor for pulmonary embolism, acute coronary syndrome and myocardial infarction (18) [ ]b) Patient with Pulmonary embolism require an average LOS of 4.3 days, therefore emergency department observation management is inappropriate 18,23 [ ]c) Painful condition/s in the elderly, have the highest rate of recidivism after emergency department observation management (10.8%) 20,21,22 [ ]d) Elevated cardiac biomarker requires intensive and exhaustive care (19) [X]IX. General contraindications and/or Inappropriate clinical situations for Observational Care in patients with Chest Pain, when ANY ONE of the following is required: [X]a) Prediction of prolongation of LOS based on ANY ONE of the following may be considered as a contraindication for observational care 2, 3, 4, 5, 6, 7, 8, 9, 10, 11 [X]i) Age > 65 yrs. [ ]ii) Patient arriving by ambulance [ ]iii) Patient with high acuity [ ]iv) Patient requiring vital sign monitoring [ ]v) Patient on IV medication [ ]b) Systolic blood pressures 180mmHg 3,12 [ ]c) Patient with altered mental status including delirium and other alteration of consciousness, (3) [ ]d) Patient whose discharge disposition will be to a [facility] home or rehabilitation home should not be managed in Emergency Department Observation Unit. CMS rule requires 3 days hospital stay before such placement. 3,13 [ ]e) Patient with failure to thrive due to broad array of etiologies 3,16,17 [ ]f) Inability to ambulate 3,14 Extended stay beyond goal length of stay may be needed for (1)(28): [ ]a) Specific condition diagnosed after evaluation (eg, pulmonary embolism, aortic dissection) [ ]b) Unstable angina [ ]c) Continued suspicion of acute coronary syndrome with inability to complete needed cardiac evaluation (eg, patient clinically unable to undergo stress testing) [ ]d) Myocardial infarction (Contents from ANGINA and CHEST PAIN clinical indications for admission to inpatient care have been integrated in this form) The original [facility] [employer] [facility] content created by [employer] has been revised. The portions of the content which have been revised are identified through the use of italic text or in bold, and [employer] [facility] has neither reviewed nor approved the modified material. All other unmodified content is copyright [employer] [facility]. Please see references footnoted in the original [facility] [place] edition 2016 Admission Criteria Met?: Yes BERRY QUEZADA Mar 04, 2017 16:45
[2017-03-04 18:30] VITALS: BP 135/57
[2017-03-04] MEDS ORDERED: AMLO5TAB2 PO (18:42)
[2017-03-04] MEDS ORDERED: FENO145T2 PO (18:42)
[2017-03-04] MEDS ORDERED: TRAM50TA PO (18:42)
[2017-03-04] MEDS ORDERED: MIRT15TA3 PO ×2 (18:42→18:45)
[2017-03-04] MEDS ORDERED: GLIP10TA13 PO (18:42)
[2017-03-04] MEDS ORDERED: ACETAMINOPHEN 325 MG TABLET. PO PRN (18:45)
[2017-03-04] MEDS ORDERED: DEXTROSE 50% 25 GM / 50ML DISP.SYRIN. IV PRN (18:45)
[2017-03-04] MEDS ORDERED: TRAMADOL 50 MG TABLET. PO PRN (19:15)
--- NOTE | 2017-03-04 19:30 | PDOC1 ---
History and Physical Date of Admission Date of Admission DATE: 03/04/17 TIME: 19:23 Identification/Chief Complaint Chief Complaint chest pain?anxiety attack Source Source: Caregiver, Chart review, Patient History of Present Illness History of Present Illness 81 y./o female, was just recently dcd here 03/02/17 after being admitted for STEMI having PCI x 1 stent placed. COmpliant with all her AC/ cardiac meds issued on dc. She lives in a senior place, was talking with a friend and she showed her R groin where she had the cardiac cath site and saw the significant bruising (but no hematoma). The unsightly site sounds like caused her to have an anxiety attack, experienced CP. Went to ER, trop 1. plus ( post cath), EKG ok - Admitted for OBS given proximity to STEMI, but assessed to be likely an anxiety attack. Pt is not interested in trying low dose anxiolytic , looks anxious in my encounter but not in distress. Eager to go home ramona. FAmily at bedside, BS 300s - took her lantus last night and her metformin today Past Medical History Cardiovascular: HTN, Hyperlipidemia CENTRAL NERVOUS SYSTEM: Dementia Endocrine: Diabetes Past Surgical History Past Surgical History: Other (recent PCI), No pertinent history Family History Family History: No Significant, Heart Disease Social History Smoke: No ALCOHOL: none Drugs: None Current Problem List Problem List Problems Medical Problems: (1) Chest pain Status: Acute Problems: Current Medications Current Medications Current Medications Aspirin (Children'S Aspirin) 324 mg 1X ONCE PO ; Start 03/04/17 at 16:00; Stop 03/04/17 at 16:01; Status DC Aspirin (Children'S Aspirin) 324 mg 1X ONCE PO Last administered on 03/04/17t 16:15; Start 03/04/17 at 16:15; Stop 03/04/17 at 16:16; Status DC Ondansetron HCl (Zofran) 4 mg PRN Q8HRS PRN IV NAUSEA/VOMITING; Start 03/04/17 at 16:15; Stop 03/04/17 at 18:45; Status DC Ondansetron HCl (Zofran) 4 mg PRN Q6HRS PRN IV NAUSEA/VOMITING; Start 03/04/17 at 18:43 Acetaminophen (Tylenol) 650 mg PRN Q6HRS PRN PO pain; Start 03/04/17 at 18:45 Insulin Aspart (Novolog) 0-9 UNITS TIDWMEALS SQ ; Start 03/05/17 at 08:00; Stop 03/05/17 at 08:00; Status DC Dextrose (Dextrose 50%-Water Syringe) 12.5 gm PRN Q15MIN PRN IV SEE COMMENTS; Start 03/04/17 at 18:45 Insulin Aspart (Novolog) 0-9 UNITS TIDWMEALS SQ ; Start 03/05/17 at 19:30 Amlodipine Besylate (Norvasc) 5 mg DAILY PO ; Start 03/05/17 at 09:00 Atorvastatin Calcium (Lipitor) 40 mg QHS PO ; Start 03/04/17 at 21:00 Calcitriol (Rocaltrol) 0.25 mcg DAILY PO ; Start 03/05/17 at 09:00 Lisinopril (Prinivil) 20 mg DAILY PO ; Start 03/05/17 at 09:00 Metoprolol Tartrate (Lopressor) 25 mg BID PO ; Start 03/04/17 at 21:00 Mirtazapine (Remeron) 7.5 mg QHS PO ; Start 03/04/17 at 21:00 Potassium Chloride (Klor-Con) 20 meq DAILY PO ; Start 03/05/17 at 09:00 Ticagrelor (Brilinta) 90 mg BID PO ; Start 03/04/17 at 21:00 Tramadol HCl (Ultram) 50 mg PRN BID PRN PO PAIN; Start 03/04/17 at 19:15 Fenofibrate (Lofibra) 134 mg DAILY PO ; Start 03/05/17 at 09:00 Glipizide (Glucotrol) 10 mg BIDBFRMEAL PO ; Start 03/05/17 at 07:30 Insulin Detemir (Levemir) 14 units QHS SQ ; Start 03/04/17 at 21:00 Pantoprazole Sodium (Protonix) 40 mg DAILYAC PO ; Start 03/05/17 at 07:30 Active Scripts Active Atorvastatin Calcium 40 Mg Tablet 40 Mg PO QHS Metoprolol Tartrate 25 Mg Tablet 25 Mg PO BID Brilinta (Ticagrelor) 90 Mg Tablet 90 Mg PO BID Reported Mirtazapine 15 Mg Tablet 0.5 Tab PO QHS Fenofibrate (Fenofibrate Nanocrystallized) 145 Mg Tablet 1 Tab PO DAILY Amlodipine Besylate 5 Mg Tablet 5 Mg PO DAILY Glipizide 10 Mg Tablet 1 Tab PO BID Tramadol Hcl 50 Mg Tablet 50 Mg PO BID PRN Lisinopril 20 Mg Tablet 1 Tab PO DAILY Klor-Con M20 (Potassium Chloride) 20 Meq Tab.er.prt 1 Tab PO DAILY Omeprazole 20 Mg Capsule.dr 1 Cap PO DAILY Calcitriol 0.25 Mcg Capsule 1 Cap PO DAILY Lantus Solostar (Insulin Glargine,Hum.rec.anlog) 100 Unit/1 Ml Insuln.pen 14 Unit SQ QHS Allergies Allergies: Coded Allergies: No Known Drug Allergies (Unverified , 02/28/17) ROS General: No: Appetite, Chills, Fatigue, Malaise, Night Sweats, Other PSYCHOLOGICAL ROS: YES: Anxiety Eyes: No Blurry vision, No Decreased vision, No Double vision, No Dry eyes, No Excessive tearing, No Eye Pain, No Itchy Eyes, No Loss of vision, No Other, No Photophobia, No Scotomata, No Uses contacts, No Uses glasses HEENT: No: Epistaxis, Heacaches, Hearing change, Nasal congestion, Nasal discharge, Oral lesions, Other, Sinus pain, Sneezing, Snoring, Sore Throat, Tinnitus, Vertigo, Visual Changes, Vocal changes ALLERGY AND IMMUNOLOGY: No: Hives, Insect Bite Sensitivity, Itchy/Watery Eyes, Nasal Congestion, Other, Post Nasal Drip, Seasonal Allergies Hematological and Lymphatic: No: Bleeding Problems, Blood Clots, Blood Transfusions, Brusing, Night Sweats, Other, Pallor, Swollen Lymph Nodes ENDOCRINE: No: Breast Changes, Galactorrhea, Hair Pattern Changes, Hot Flashes , Malaise/lethargy, Mood Swings, Other, Palpitations, Polydipsia/polyuria, Skin Changes, Temperature Intolerance, Unexpected Weight Changes Breast: No New/Changing Breast Lumps, No Nipple changes, No Nipple discharge, No Other Respiratory: No: Cough, Hemoptysis, Orthopnea, Other, Pleuritic Pain, SOB with excertion, Shortness of breath, Sputum Changes, Stridor, Tachypnea, Wheezing Cardiovascular: No Chest Pain, No Edema, No Lt Headedness, No Orthopnea, No Other, No Palpitations, No Paroxysmal Noc. Dyspnea Gastrointestinal: No Abdominal Pain, No Constipation, No Diarrhea, No Hematochezia, No Melena, No Nausea, No Other, No Vomiting Genitourinary: No , No , No , No , No , No , No , No Discharge, No Dysuria, No Flank Pain, No Frequency, No Hematuria, No Incontinence, No Other, No Pain, No Retention, No Urgency Musculoskeletal: No Gait Disturbance, No Joint Pain, No Joint Stiffness, No Joint Swelling, No Muscle Pain, No Muscular Weakness, No Other, No Pain In:, No Swelling In: Neurological: No Behavorial Changes, No Bowel/Bladder ControlChng, No Confusion , No Dizziness, No Gait Disturbance, No Headaches, No Impaired Coord/balance, No Memory Loss, No Numbness/Tingling, No Other, No Seizures, No Speech Problems , No Tremors, No Visual Changes, No Weakness Skin: Yes Other (no hematoma) Physical Exam General: Alert, Oriented X3, Cooperative, No acute distress, Other (looks anxious) HEENT: Atraumatic Lungs: Clear to auscultation, Normal air movement Heart: S1S2, RRR, no thrills, no rubs, no gallops Cardiovascular: S1, S2 Breasts: Normal Abdomen: Normal bowel sounds, Soft, No tenderness, No hepatosplenomegaly, No masses Extremities: No clubbing, No cyanosis, No edema, Normal pulses, No tenderness/ swelling Skin: Other (R groin brusing but nohematoma - brusi is purplish to greensh color with some yellowing on the periphery) Neuro: Normal gait, Normal speech, Strength at 5/5 X4 ext, Normal tone, Sensation intact, Cranial nerves 3-12 NL, Reflexes 2+ Psych/Mental Status: Mental status NL, Mood NL Vitals Vitals Vital Signs Date Time Temp Pulse Resp B/P Pulse Ox O2 Delivery O2 Flow Rate FiO2 03/04/17 18:02 81 133/71 100 Room Air 03/04/17 14:50 98.3 18 98.3 Labs Labs Laboratory Tests Test 03/04/17 15:55 White Blood Count 5.7x10^3/uL (4.0-11.0) Red Blood Count 3.10x10^6/uL (3.50-5.40) Hemoglobin 9.0g/dL (12.0-15.5) Hematocrit 27.4% (36.0-47.0) Mean Corpuscular Volume 88fL (79-100) Mean Corpuscular Hemoglobin 29pg (25-35) Mean Corpuscular Hemoglobin Concent 33g/dL (31-37) Red Cell Distribution Width 14.0% (11.5-14.5) Platelet Count 180x10^3/uL (140-400) Neutrophils (%) (Auto) 58% (31-73) Lymphocytes (%) (Auto) 26% (24-48) Monocytes (%) (Auto) 12% (0-9) Eosinophils (%) (Auto) 4% (0-3) Basophils (%) (Auto) 1% (0-3) Neutrophils # (Auto) 3.3x10^3uL (1.8-7.7) Lymphocytes # (Auto) 1.5x10^3/uL (1.0-4.8) Monocytes # (Auto) 0.7x10^3/uL (0.0-1.1) Eosinophils # (Auto) 0.2x10^3/uL (0.0-0.7) Basophils # (Auto) 0.0x10^3/uL (0.0-0.2) Prothrombin Time 13.7SEC (11.7-14.0) Prothromb Time International Ratio 1.1 (0.8-1.1) Sodium Level 138mmol/L (136-145) Potassium Level 4.6mmol/L (3.5-5.1) Chloride Level 104mmol/L (98-107) Carbon Dioxide Level 23mmol/L (21-32) Anion Gap 11 (6-14) Blood Urea Nitrogen 28mg/dL (7-20) Creatinine 1.9mg/dL (0.6-1.0) Estimated GFR (Cockcroft-Gault) 25.4 BUN/Creatinine Ratio 15 (6-20) Glucose Level 373mg/dL (70-99) Calcium Level 9.3mg/dL (8.5-10.1) Total Bilirubin 0.5mg/dL (0.2-1.0) Aspartate Amino Transf (AST/SGOT) 16U/L (15-37) Alanine Aminotransferase (ALT/SGPT) 21U/L (14-59) Alkaline Phosphatase 61U/L (46-116) Troponin I Quantitative 1.855ng/mL (0.000-0.055) QY-Yvg-V-Type Natriuretic Peptide 1142pg/mL (0-449) Total Protein 6.3g/dL (6.4-8.2) Albumin 3.0g/dL (3.4-5.0) Albumin/Globulin Ratio 0.9 (1.0-1.7) Laboratory Tests Test 03/04/17 15:55 White Blood Count 5.7x10^3/uL (4.0-11.0) Red Blood Count 3.10x10^6/uL (3.50-5.40) Hemoglobin 9.0g/dL (12.0-15.5) Hematocrit 27.4% (36.0-47.0) Mean Corpuscular Volume 88fL (79-100) Mean Corpuscular Hemoglobin 29pg (25-35) Mean Corpuscular Hemoglobin Concent 33g/dL (31-37) Red Cell Distribution Width 14.0% (11.5-14.5) Platelet Count 180x10^3/uL (140-400) Neutrophils (%) (Auto) 58% (31-73) Lymphocytes (%) (Auto) 26% (24-48) Monocytes (%) (Auto) 12% (0-9) Eosinophils (%) (Auto) 4% (0-3) Basophils (%) (Auto) 1% (0-3) Neutrophils # (Auto) 3.3x10^3uL (1.8-7.7) Lymphocytes # (Auto) 1.5x10^3/uL (1.0-4.8) Monocytes # (Auto) 0.7x10^3/uL (0.0-1.1) Eosinophils # (Auto) 0.2x10^3/uL (0.0-0.7) Basophils # (Auto) 0.0x10^3/uL (0.0-0.2) Prothrombin Time 13.7SEC (11.7-14.0) Prothromb Time International Ratio 1.1 (0.8-1.1) Sodium Level 138mmol/L (136-145) Potassium Level 4.6mmol/L (3.5-5.1) Chloride Level 104mmol/L (98-107) Carbon Dioxide Level 23mmol/L (21-32) Anion Gap 11 (6-14) Blood Urea Nitrogen 28mg/dL (7-20) Creatinine 1.9mg/dL (0.6-1.0) Estimated GFR (Cockcroft-Gault) 25.4 BUN/Creatinine Ratio 15 (6-20) Glucose Level 373mg/dL (70-99) Calcium Level 9.3mg/dL (8.5-10.1) Total Bilirubin 0.5mg/dL (0.2-1.0) Aspartate Amino Transf (AST/SGOT) 16U/L (15-37) Alanine Aminotransferase (ALT/SGPT) 21U/L (14-59) Alkaline Phosphatase 61U/L (46-116) Troponin I Quantitative 1.855ng/mL (0.000-0.055) AW-Uok-S-Type Natriuretic Peptide 1142pg/mL (0-449) Total Protein 6.3g/dL (6.4-8.2) Albumin 3.0g/dL (3.4-5.0) Albumin/Globulin Ratio 0.9 (1.0-1.7) VTE Prophylaxis Ordered VTE Prophylaxis Devices: Yes VTE Pharmacological Prophylaxi: Yes Assessment/Plan Assessment/Plan 1. Anxiety attack 2. CP 3. REecent STEMI s/p PCI/BMS to RCA DAPT for at least 30 days; then daily ASA; preferably DAPT X 1 yr 3. Ascending aortic aneurysm; 3.9 cm per echo follow in the outpt setting 4. Hypertension control with meds 5. Hyperlipidemia continue statin therapy, high dose 6. Diabetes on OHA and lantus 7. CKD Plan Admit oBS Resume home meds SSI PT/OT Courtesy consult cards Dw pt and family an ER OBS YUMIKO IGNACIO MD Mar 04, 2017 19:30
[2017-03-04] MEDS: TICAGRELOR 90 MG TABLET. PO SCH (20:54)
[2017-03-04] MEDS: ATORVASTATIN CALCIUM 40 MG TABLET. PO SCH (20:54)
[2017-03-04] MEDS: MIRTAZAPINE 15 MG TABLET PO SCH (20:55)
[2017-03-04] MEDS: METOPROLOL TART IMMED RELEASE 25 MG TABLET. PO SCH (20:55)
[2017-03-04] MEDS: INSULIN ASPART 300 UNITS/3 ML INSULN.PEN SQ SCH (21:10)
[2017-03-04] MEDS: INSULIN DETEMIR 300 UNITS/3 ML INSULN.PEN. SQ SCH (21:11)
[2017-03-04 23:30] VITALS: BP 120/52
[2017-03-05 03:15] VITALS: BP 117/74
[2017-03-05 07:46] VITALS: BP 137/57
[2017-03-05] MEDS: INSULIN ASPART 300 UNITS/3 ML INSULN.PEN SQ SCH ×3 (08:00→17:00)
[2017-03-05] MEDS ORDERED: INSULIN ASPART 300 UNITS/3 ML INSULN.PEN SQ SCH ×2 (08:00→19:30)
--- NOTE | 2017-03-05 08:39 | PDOC2 ---
CARDIAC CONSULT DATE OF CONSULT Date of Consult DATE: 03/05/17 TIME: 08:36 REASON FOR CONSULT Reason for Consult: Chest Pain s/p recent STEMI REFERRING PHYSICIAN Referring Physician: Dr. Alva SOURCE Source: Chart review, Patient HISTORY OF PRESENT ILLNESS HISTORY OF PRESENT ILLNESS This is an 81 yo female, with recent STEMI s/p PCI/BMS to RCA, who presented with complaints of chest pain. Patient unable to prior any specific details of chest pain due to dementia. Patient resides at [facility], but family has been staying 24/06 since recent hospitalization. Daughters went back to work yesterday. Apparently, patient complained to nursing staff about chest discomfort and EMS was called per protocol. Daughter feels like this could have been anxiety related as she was left alone for the first time. Patient reports experiencing chest pain but is able to provide another other further information. Is presently chest pain free. Denies any SOA, dizziness, diaphoresis, or nausea/vomiting. Has been compliant with medications. PAST MEDICAL HISTORY Cardiovascular: CAD (s/p PCI/BMS to RCA), HTN, [place], Hyperlipidemia CENTRAL NERVOUS SYSTEM: Dementia GI: GERD Heme/Onc: No pertinent hx Hepatobiliary: No pertinent hx Psych: Anxiety Musculoskeletal: Osteoarthritis Rheumatologic: No pertinent hx Infectious disease: No pertinent hx ENT: No pertinent hx Renal/: Urinary Incontinence Endocrine: Diabetes Dermatology: No pertinent hx PAST SURGICAL HISTORY Past Surgical History: Total knee replacement (left ), Tonsillectomy, Other ( see PMH) SOCIAL HISTORY Smoke: No ALCOHOL: none Drugs: None Lives: [facility] CURRENT MEDICATIONS CURRENT MEDICATIONS Current Medications Medications (Trade) Dose Ordered Sig/Leo Route PRN Reason Start Time Stop Time Status Last Admin Dose Admin Aspirin (Children'S Aspirin) 324 mg 1X ONCE PO 03/04/17 16:15 03/04/17 16:16 DC 03/04/17 16:15 Atorvastatin Calcium (Lipitor) 40 mg QHS PO 03/04/17 21:00 03/04/17 20:54 Metoprolol Tartrate (Lopressor) 25 mg BID PO 03/04/17 21:00 03/04/17 20:55 Mirtazapine (Remeron) 7.5 mg QHS PO 03/04/17 21:00 03/04/17 20:55 Ticagrelor (Brilinta) 90 mg BID PO 03/04/17 21:00 03/04/17 20:54 Insulin Detemir (Levemir) 14 units QHS SQ 03/04/17 21:00 03/04/17 21:11 Insulin Aspart (Novolog) 0-9 UNITS TIDWMEALS SQ 03/04/17 20:15 03/04/17 21:10 ALLERGIES ALLERGIES: Coded Allergies: No Known Drug Allergies (Unverified , 02/28/17) ROS Review of System unreliable due to dementia PHYSICAL EXAM General: Alert, Oriented X3 (oriented to person and place), Cooperative, No acute distress, Other (forgetful) Heart: Regular rate, Normal S1, Normal S2 Abdomen: Soft, No tenderness Extremities: No edema, Normal pulses Skin: No breakdown, No significant lesion Neuro: Normal speech, Sensation intact Psych/Mental Status: Mood NL, Other (pleasant ) MUSCULOSKELETAL: Osteoarthritic changes both hands VITALS VITALS Vital Signs Date Time Temp Pulse Resp B/P Pulse Ox O2 Delivery O2 Flow Rate FiO2 03/05/17 07:46 97.3 85 20 137/57 97 Room Air 97.3 LABS Lab: Laboratory Tests Test 03/04/17 15:55 03/04/17 19:57 03/04/17 21:58 03/05/17 04:00 White Blood Count 5.7x10^3/uL (4.0-11.0) Red Blood Count 3.10x10^6/uL (3.50-5.40) Hemoglobin 9.0g/dL (12.0-15.5) Hematocrit 27.4% (36.0-47.0) Mean Corpuscular Volume 88fL (79-100) Mean Corpuscular Hemoglobin 29pg (25-35) Mean Corpuscular Hemoglobin Concent 33g/dL (31-37) Red Cell Distribution Width 14.0% (11.5-14.5) Platelet Count 180x10^3/uL (140-400) Neutrophils (%) (Auto) 58% (31-73) Lymphocytes (%) (Auto) 26% (24-48) Monocytes (%) (Auto) 12% (0-9) Eosinophils (%) (Auto) 4% (0-3) Basophils (%) (Auto) 1% (0-3) Neutrophils # (Auto) 3.3x10^3uL (1.8-7.7) Lymphocytes # (Auto) 1.5x10^3/uL (1.0-4.8) Monocytes # (Auto) 0.7x10^3/uL (0.0-1.1) Eosinophils # (Auto) 0.2x10^3/uL (0.0-0.7) Basophils # (Auto) 0.0x10^3/uL (0.0-0.2) Prothrombin Time 13.7SEC (11.7-14.0) Prothromb Time International Ratio 1.1 (0.8-1.1) Sodium Level 138mmol/L (136-145) Potassium Level 4.6mmol/L (3.5-5.1) Chloride Level 104mmol/L (98-107) Carbon Dioxide Level 23mmol/L (21-32) Anion Gap 11 (6-14) Blood Urea Nitrogen 28mg/dL (7-20) Creatinine 1.9mg/dL (0.6-1.0) Estimated GFR (Cockcroft-Gault) 25.4 BUN/Creatinine Ratio 15 (6-20) Glucose Level 373mg/dL (70-99) Calcium Level 9.3mg/dL (8.5-10.1) Total Bilirubin 0.5mg/dL (0.2-1.0) Aspartate Amino Transf (AST/SGOT) 16U/L (15-37) Alanine Aminotransferase (ALT/SGPT) 21U/L (14-59) Alkaline Phosphatase 61U/L (46-116) Troponin I Quantitative 1.855ng/mL (0.000-0.055) 1.792ng/mL (0.000-0.055) 1.632ng/mL (0.000-0.055) BI-Oyd-E-Type Natriuretic Peptide 1142pg/mL (0-449) Total Protein 6.3g/dL (6.4-8.2) Albumin 3.0g/dL (3.4-5.0) Albumin/Globulin Ratio 0.9 (1.0-1.7) Glucose (Fingerstick) 381mg/dL (70-99) Creatine Kinase 93U/L (26-192) ECHOCARDIOGRAM ECHOCARDIOGRAM <Conclusion> The basal to mid inferior wall is moderately hypokinetic. Left ventricle systolic function is normal. The Ejection Fraction is 50-55%. 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 The IVC is normal in size and collapses >50% with inspiration. DATE: 02/28/17 1149 HEART CATH HEART CATH <Conclusion> Right coronary artery with a mid occlusion. Stenting to the right coronary artery with 0% residual lesion. Mild disease in the remaining vessels. LV ejection fraction of 55% with minimal inferior wall hypokinesis. Moderately enlarged aortic root. DATE: 02/28/17 0930 ASSESSMENT/PLAN ASSESSMENT/PLAN 1. Chest pain (details not available) resolved trop peak 1.855- likely trending down from STEMI last week when trop was 65 will monitor overnight. If no further significant CP, will plan for discharge in am 2. CAD s/p PCI/BMS to RCA 02/28/17 stable. presently CP free continue with secondary prevention including DAPT with ASA and Brilinta 3. Ascending aortic aneurysm; 3.9 cm per echo follow in the outpt setting 4. Hypertension control with meds 5. Hyperlipidemia continue statin therapy, high dose 6. Diabetes per PCP 7. BHARAT with CKD Problems: GURMEET WEBB APRN Mar 05, 2017 08:39
[2017-03-05] MEDS: GLIPIZIDE 5 MG TABLET. PO SCH ×2 (10:13→17:49)
[2017-03-05] MEDS: TICAGRELOR 90 MG TABLET. PO SCH ×2 (10:14→20:30)
[2017-03-05] MEDS: PANTOPRAZOLE 40 MG TABLET.DR. PO SCH (10:14)
[2017-03-05] MEDS: AMLODIPINE BESYLATE 5 MG TABLET. PO SCH (10:14)
[2017-03-05] MEDS: METOPROLOL TART IMMED RELEASE 25 MG TABLET. PO SCH ×2 (10:15→20:30)
[2017-03-05] MEDS: LISINOPRIL 20 MG TABLET PO SCH (10:15)
[2017-03-05] MEDS: FENOFIBRATE,MICRONIZED 134 MG CAPSULE PO SCH (10:15)
[2017-03-05] MEDS: POTASSIUM CHLORIDE 20 MEQ TABLET.ER. PO SCH (10:15)
[2017-03-05] MEDS: CALCITRIOL 0.25 MCG CAPSULE. PO SCH (10:16)
[2017-03-05 10:19] VITALS: BP 145/58
--- NOTE | 2017-03-05 11:56 | PDOC3 ---
Discharge Summary Visit Information Date of Admission: Mar 04, 2017 Date of Discharge: Mar 05, 2017 Admitting Diagnosis Comment: 1. Anxiety attack 2. CP 3. REecent STEMI s/p PCI/BMS to RCA DAPT for at least 30 days; then daily ASA; preferably DAPT X 1 yr 3. Ascending aortic aneurysm; 3.9 cm per echo follow in the outpt setting 4. Hypertension control with meds 5. Hyperlipidemia continue statin therapy, high dose 6. Diabetes on OHA and lantus 7. CKD Final Diagnosis Problems Medical Problems: (1) Anxiety Status: Acute (2) Anxiety about health Status: Acute (3) Chest pain Status: Acute Brief Hospital Course Allergies Allergies Coded Allergies Type Severity Reaction Last Updated Verified No Known Drug Allergies 02/28/17 No Vital Signs Vital Signs Date Time Temp Pulse Resp B/P Pulse Ox O2 Delivery O2 Flow Rate FiO2 03/05/17 10:19 97.6 87 18 145/58 98 Room Air 97.6 Lab Results Laboratory Tests Test 03/04/17 15:55 03/04/17 19:57 03/04/17 21:58 03/05/17 04:00 White Blood Count 5.7x10^3/uL (4.0-11.0) Red Blood Count 3.10x10^6/uL (3.50-5.40) Hemoglobin 9.0g/dL (12.0-15.5) Hematocrit 27.4% (36.0-47.0) Mean Corpuscular Volume 88fL (79-100) Mean Corpuscular Hemoglobin 29pg (25-35) Mean Corpuscular Hemoglobin Concent 33g/dL (31-37) Red Cell Distribution Width 14.0% (11.5-14.5) Platelet Count 180x10^3/uL (140-400) Neutrophils (%) (Auto) 58% (31-73) Lymphocytes (%) (Auto) 26% (24-48) Monocytes (%) (Auto) 12% (0-9) Eosinophils (%) (Auto) 4% (0-3) Basophils (%) (Auto) 1% (0-3) Neutrophils # (Auto) 3.3x10^3uL (1.8-7.7) Lymphocytes # (Auto) 1.5x10^3/uL (1.0-4.8) Monocytes # (Auto) 0.7x10^3/uL (0.0-1.1) Eosinophils # (Auto) 0.2x10^3/uL (0.0-0.7) Basophils # (Auto) 0.0x10^3/uL (0.0-0.2) Prothrombin Time 13.7SEC (11.7-14.0) Prothromb Time International Ratio 1.1 (0.8-1.1) Sodium Level 138mmol/L (136-145) Potassium Level 4.6mmol/L (3.5-5.1) Chloride Level 104mmol/L (98-107) Carbon Dioxide Level 23mmol/L (21-32) Anion Gap 11 (6-14) Blood Urea Nitrogen 28mg/dL (7-20) Creatinine 1.9mg/dL (0.6-1.0) Estimated GFR (Cockcroft-Gault) 25.4 BUN/Creatinine Ratio 15 (6-20) Glucose Level 373mg/dL (70-99) Calcium Level 9.3mg/dL (8.5-10.1) Total Bilirubin 0.5mg/dL (0.2-1.0) Aspartate Amino Transf (AST/SGOT) 16U/L (15-37) Alanine Aminotransferase (ALT/SGPT) 21U/L (14-59) Alkaline Phosphatase 61U/L (46-116) Troponin I Quantitative 1.855ng/mL (0.000-0.055) 1.792ng/mL (0.000-0.055) 1.632ng/mL (0.000-0.055) RB-Vfg-M-Type Natriuretic Peptide 1142pg/mL (0-449) Total Protein 6.3g/dL (6.4-8.2) Albumin 3.0g/dL (3.4-5.0) Albumin/Globulin Ratio 0.9 (1.0-1.7) Glucose (Fingerstick) 381mg/dL (70-99) Creatine Kinase 93U/L (26-192) Laboratory Tests Test 03/04/17 15:55 03/04/17 19:57 03/04/17 21:58 03/05/17 04:00 White Blood Count 5.7x10^3/uL (4.0-11.0) Red Blood Count 3.10x10^6/uL (3.50-5.40) Hemoglobin 9.0g/dL (12.0-15.5) Hematocrit 27.4% (36.0-47.0) Mean Corpuscular Volume 88fL (79-100) Mean Corpuscular Hemoglobin 29pg (25-35) Mean Corpuscular Hemoglobin Concent 33g/dL (31-37) Red Cell Distribution Width 14.0% (11.5-14.5) Platelet Count 180x10^3/uL (140-400) Neutrophils (%) (Auto) 58% (31-73) Lymphocytes (%) (Auto) 26% (24-48) Monocytes (%) (Auto) 12% (0-9) Eosinophils (%) (Auto) 4% (0-3) Basophils (%) (Auto) 1% (0-3) Neutrophils # (Auto) 3.3x10^3uL (1.8-7.7) Lymphocytes # (Auto) 1.5x10^3/uL (1.0-4.8) Monocytes # (Auto) 0.7x10^3/uL (0.0-1.1) Eosinophils # (Auto) 0.2x10^3/uL (0.0-0.7) Basophils # (Auto) 0.0x10^3/uL (0.0-0.2) Prothrombin Time 13.7SEC (11.7-14.0) Prothromb Time International Ratio 1.1 (0.8-1.1) Sodium Level 138mmol/L (136-145) Potassium Level 4.6mmol/L (3.5-5.1) Chloride Level 104mmol/L (98-107) Carbon Dioxide Level 23mmol/L (21-32) Anion Gap 11 (6-14) Blood Urea Nitrogen 28mg/dL (7-20) Creatinine 1.9mg/dL (0.6-1.0) Estimated GFR (Cockcroft-Gault) 25.4 BUN/Creatinine Ratio 15 (6-20) Glucose Level 373mg/dL (70-99) Calcium Level 9.3mg/dL (8.5-10.1) Total Bilirubin 0.5mg/dL (0.2-1.0) Aspartate Amino Transf (AST/SGOT) 16U/L (15-37) Alanine Aminotransferase (ALT/SGPT) 21U/L (14-59) Alkaline Phosphatase 61U/L (46-116) Troponin I Quantitative 1.855ng/mL (0.000-0.055) 1.792ng/mL (0.000-0.055) 1.632ng/mL (0.000-0.055) RH-Ejt-B-Type Natriuretic Peptide 1142pg/mL (0-449) Total Protein 6.3g/dL (6.4-8.2) Albumin 3.0g/dL (3.4-5.0) Albumin/Globulin Ratio 0.9 (1.0-1.7) Glucose (Fingerstick) 381mg/dL (70-99) Creatine Kinase 93U/L (26-192) Brief Hospital Course Ms. Spence is a 81 old [sex] who presented with [ ]History of Present Illness 81 y./o female, was just recently dcd here 03/02/17 after being admitted for STEMI having PCI x 1 stent placed. COmpliant with all her AC/ cardiac meds issued on dc. She lives in a senior [facility], was talking with a friend and she showed her R groin where she had the cardiac cath site and saw the significant bruising (but no hematoma). The unsightly site sounds like caused her to have an anxiety attack, experienced CP. Went to ER, trop 1. plus ( post cath), EKG ok - Admitted for OBS given proximity to STEMI, but assessed to be likely an anxiety attack. Pt is not interested in trying low dose anxiolytic , looks anxious in my encounter but not in distress. Eager to go home ramona. 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 Condition at Discharge: Improved, Stable Disposition/Orders: D/C to Home Scheduled Amlodipine Besylate (Amlodipine Besylate) 5 MG PO DAILY (Reported) Atorvastatin Calcium (Atorvastatin Calcium) 40 MG PO QHS Calcitriol (Calcitriol) 1 CAP PO DAILY (Reported) Fenofibrate Nanocrystallized (Fenofibrate) 1 TAB PO DAILY (Reported) Glipizide (Glipizide) 1 TAB PO BID (Reported) Insulin Glargine,Hum.rec.anlog (Lantus Solostar) 14 UNIT SQ QHS (Reported) Lisinopril (Lisinopril) 1 TAB PO DAILY (Reported) Metoprolol Tartrate (Metoprolol Tartrate) 25 MG PO BID Mirtazapine (Mirtazapine) 0.5 TAB PO QHS (Reported) Omeprazole (Omeprazole) 1 CAP PO DAILY (Reported) Potassium Chloride (Klor-Con M20) 1 TAB PO DAILY (Reported) Ticagrelor (Brilinta) 90 MG PO BID Scheduled PRN Tramadol Hcl (Tramadol Hcl) 50 MG PO BID PRN PRN PAIN (Reported) Discontinued Medications Fenofibrate Nanocrystallized (Fenofibrate) 1 TAB PO DAILY (Reported) Fenofibrate Nanocrystallized (Fenofibrate) 1 TAB PO DAILY (Reported) Glipizide (Glipizide) 1 TAB PO DAILY (Reported) Mirtazapine (Mirtazapine) 1 TAB PO QHS (Reported) YUMIKO IGNACIO MD Mar 05, 2017 11:56
--- NOTE | 2017-03-05 12:13 | PDOC ---
PROGRESS NOTES Chief Complaint Chief Complaint 1. Anxiety attack 2. CP 3. REecent STEMI s/p PCI/BMS to RCA DAPT for at least 30 days; then daily ASA; preferably DAPT X 1 yr 3. Ascending aortic aneurysm; 3.9 cm per echo follow in the outpt setting 4. Hypertension control with meds 5. Hyperlipidemia continue statin therapy, high dose 6. Diabetes on OHA and lantus 7. CKD History of Present Illness History of Present Illness no CP Wants to go home After discussion with cards, prefers 1 more night stay PLAN: Follow cards recs Dw pt and RN and cards R groin bruise stable - as expected Vitals Vitals Vital Signs Date Time Temp Pulse Resp B/P Pulse Ox O2 Delivery O2 Flow Rate FiO2 03/05/17 10:19 97.6 87 18 145/58 98 Room Air 97.6 Physical Exam General: Alert, Cooperative, No acute distress, Other (forgetful) Heart: Regular rate, Normal S1, Normal S2 Lungs: Clear, Other Abdomen: Normal bowel sounds, Soft, No tenderness, No hepatosplenomegaly, No masses Extremities: No edema, Normal pulses Skin: No breakdown, No significant lesion Labs LABS Laboratory Tests Test 03/04/17 15:55 03/04/17 19:57 03/04/17 21:58 03/05/17 04:00 White Blood Count 5.7x10^3/uL (4.0-11.0) Red Blood Count 3.10x10^6/uL (3.50-5.40) Hemoglobin 9.0g/dL (12.0-15.5) Hematocrit 27.4% (36.0-47.0) Mean Corpuscular Volume 88fL (79-100) Mean Corpuscular Hemoglobin 29pg (25-35) Mean Corpuscular Hemoglobin Concent 33g/dL (31-37) Red Cell Distribution Width 14.0% (11.5-14.5) Platelet Count 180x10^3/uL (140-400) Neutrophils (%) (Auto) 58% (31-73) Lymphocytes (%) (Auto) 26% (24-48) Monocytes (%) (Auto) 12% (0-9) Eosinophils (%) (Auto) 4% (0-3) Basophils (%) (Auto) 1% (0-3) Neutrophils # (Auto) 3.3x10^3uL (1.8-7.7) Lymphocytes # (Auto) 1.5x10^3/uL (1.0-4.8) Monocytes # (Auto) 0.7x10^3/uL (0.0-1.1) Eosinophils # (Auto) 0.2x10^3/uL (0.0-0.7) Basophils # (Auto) 0.0x10^3/uL (0.0-0.2) Prothrombin Time 13.7SEC (11.7-14.0) Prothromb Time International Ratio 1.1 (0.8-1.1) Sodium Level 138mmol/L (136-145) Potassium Level 4.6mmol/L (3.5-5.1) Chloride Level 104mmol/L (98-107) Carbon Dioxide Level 23mmol/L (21-32) Anion Gap 11 (6-14) Blood Urea Nitrogen 28mg/dL (7-20) Creatinine 1.9mg/dL (0.6-1.0) Estimated GFR (Cockcroft-Gault) 25.4 BUN/Creatinine Ratio 15 (6-20) Glucose Level 373mg/dL (70-99) Calcium Level 9.3mg/dL (8.5-10.1) Total Bilirubin 0.5mg/dL (0.2-1.0) Aspartate Amino Transf (AST/SGOT) 16U/L (15-37) Alanine Aminotransferase (ALT/SGPT) 21U/L (14-59) Alkaline Phosphatase 61U/L (46-116) Troponin I Quantitative 1.855ng/mL (0.000-0.055) 1.792ng/mL (0.000-0.055) 1.632ng/mL (0.000-0.055) SO-Fno-C-Type Natriuretic Peptide 1142pg/mL (0-449) Total Protein 6.3g/dL (6.4-8.2) Albumin 3.0g/dL (3.4-5.0) Albumin/Globulin Ratio 0.9 (1.0-1.7) Glucose (Fingerstick) 381mg/dL (70-99) Creatine Kinase 93U/L (26-192) Review of Systems Review of Systems all 14 pt system neg Assessment and Plan Assessmemt and Plan Problems Medical Problems: (1) Anxiety Status: Acute (2) Anxiety about health Status: Acute (3) Chest pain Status: Acute Problems: Comment Review of Relevant I have reviewed the following items thelma (where applicable) has been applied. Labs Laboratory Tests Test 03/04/17 15:55 03/04/17 19:57 03/04/17 21:58 03/05/17 04:00 White Blood Count 5.7x10^3/uL (4.0-11.0) Red Blood Count 3.10x10^6/uL (3.50-5.40) Hemoglobin 9.0g/dL (12.0-15.5) Hematocrit 27.4% (36.0-47.0) Mean Corpuscular Volume 88fL (79-100) Mean Corpuscular Hemoglobin 29pg (25-35) Mean Corpuscular Hemoglobin Concent 33g/dL (31-37) Red Cell Distribution Width 14.0% (11.5-14.5) Platelet Count 180x10^3/uL (140-400) Neutrophils (%) (Auto) 58% (31-73) Lymphocytes (%) (Auto) 26% (24-48) Monocytes (%) (Auto) 12% (0-9) Eosinophils (%) (Auto) 4% (0-3) Basophils (%) (Auto) 1% (0-3) Neutrophils # (Auto) 3.3x10^3uL (1.8-7.7) Lymphocytes # (Auto) 1.5x10^3/uL (1.0-4.8) Monocytes # (Auto) 0.7x10^3/uL (0.0-1.1) Eosinophils # (Auto) 0.2x10^3/uL (0.0-0.7) Basophils # (Auto) 0.0x10^3/uL (0.0-0.2) Prothrombin Time 13.7SEC (11.7-14.0) Prothromb Time International Ratio 1.1 (0.8-1.1) Sodium Level 138mmol/L (136-145) Potassium Level 4.6mmol/L (3.5-5.1) Chloride Level 104mmol/L (98-107) Carbon Dioxide Level 23mmol/L (21-32) Anion Gap 11 (6-14) Blood Urea Nitrogen 28mg/dL (7-20) Creatinine 1.9mg/dL (0.6-1.0) Estimated GFR (Cockcroft-Gault) 25.4 BUN/Creatinine Ratio 15 (6-20) Glucose Level 373mg/dL (70-99) Calcium Level 9.3mg/dL (8.5-10.1) Total Bilirubin 0.5mg/dL (0.2-1.0) Aspartate Amino Transf (AST/SGOT) 16U/L (15-37) Alanine Aminotransferase (ALT/SGPT) 21U/L (14-59) Alkaline Phosphatase 61U/L (46-116) Troponin I Quantitative 1.855ng/mL (0.000-0.055) 1.792ng/mL (0.000-0.055) 1.632ng/mL (0.000-0.055) WY-Rdw-S-Type Natriuretic Peptide 1142pg/mL (0-449) Total Protein 6.3g/dL (6.4-8.2) Albumin 3.0g/dL (3.4-5.0) Albumin/Globulin Ratio 0.9 (1.0-1.7) Glucose (Fingerstick) 381mg/dL (70-99) Creatine Kinase 93U/L (26-192) Laboratory Tests Test 03/04/17 15:55 03/04/17 19:57 03/04/17 21:58 03/05/17 04:00 White Blood Count 5.7x10^3/uL (4.0-11.0) Red Blood Count 3.10x10^6/uL (3.50-5.40) Hemoglobin 9.0g/dL (12.0-15.5) Hematocrit 27.4% (36.0-47.0) Mean Corpuscular Volume 88fL (79-100) Mean Corpuscular Hemoglobin 29pg (25-35) Mean Corpuscular Hemoglobin Concent 33g/dL (31-37) Red Cell Distribution Width 14.0% (11.5-14.5) Platelet Count 180x10^3/uL (140-400) Neutrophils (%) (Auto) 58% (31-73) Lymphocytes (%) (Auto) 26% (24-48) Monocytes (%) (Auto) 12% (0-9) Eosinophils (%) (Auto) 4% (0-3) Basophils (%) (Auto) 1% (0-3) Neutrophils # (Auto) 3.3x10^3uL (1.8-7.7) Lymphocytes # (Auto) 1.5x10^3/uL (1.0-4.8) Monocytes # (Auto) 0.7x10^3/uL (0.0-1.1) Eosinophils # (Auto) 0.2x10^3/uL (0.0-0.7) Basophils # (Auto) 0.0x10^3/uL (0.0-0.2) Prothrombin Time 13.7SEC (11.7-14.0) Prothromb Time International Ratio 1.1 (0.8-1.1) Sodium Level 138mmol/L (136-145) Potassium Level 4.6mmol/L (3.5-5.1) Chloride Level 104mmol/L (98-107) Carbon Dioxide Level 23mmol/L (21-32) Anion Gap 11 (6-14) Blood Urea Nitrogen 28mg/dL (7-20) Creatinine 1.9mg/dL (0.6-1.0) Estimated GFR (Cockcroft-Gault) 25.4 BUN/Creatinine Ratio 15 (6-20) Glucose Level 373mg/dL (70-99) Calcium Level 9.3mg/dL (8.5-10.1) Total Bilirubin 0.5mg/dL (0.2-1.0) Aspartate Amino Transf (AST/SGOT) 16U/L (15-37) Alanine Aminotransferase (ALT/SGPT) 21U/L (14-59) Alkaline Phosphatase 61U/L (46-116) Troponin I Quantitative 1.855ng/mL (0.000-0.055) 1.792ng/mL (0.000-0.055) 1.632ng/mL (0.000-0.055) JB-Tbe-E-Type Natriuretic Peptide 1142pg/mL (0-449) Total Protein 6.3g/dL (6.4-8.2) Albumin 3.0g/dL (3.4-5.0) Albumin/Globulin Ratio 0.9 (1.0-1.7) Glucose (Fingerstick) 381mg/dL (70-99) Creatine Kinase 93U/L (26-192) Medications Current Medications Aspirin (Children'S Aspirin) 324 mg 1X ONCE PO ; Start 03/04/17 at 16:00; Stop 03/04/17 at 16:01; Status DC Aspirin (Children'S Aspirin) 324 mg 1X ONCE PO Last administered on 03/04/17 16:15; Start 03/04/17 at 16:15; Stop 03/04/17 at 16:16; Status DC Ondansetron HCl (Zofran) 4 mg PRN Q8HRS PRN IV NAUSEA/VOMITING; Start 03/04/17 at 16:15; Stop 03/04/17 at 18:45; Status DC Ondansetron HCl (Zofran) 4 mg PRN Q6HRS PRN IV NAUSEA/VOMITING; Start 03/04/17 at 18:43 Acetaminophen (Tylenol) 650 mg PRN Q6HRS PRN PO pain; Start 03/04/17 at 18:45 Insulin Aspart (Novolog) 0-9 UNITS TIDWMEALS SQ ; Start 03/05/17 at 08:00; Stop 03/05/17 at 08:00; Status DC Dextrose (Dextrose 50%-Water Syringe) 12.5 gm PRN Q15MIN PRN IV SEE COMMENTS; Start 03/04/17 at 18:45 Insulin Aspart (Novolog) 0-9 UNITS TIDWMEALS SQ ; Start 03/05/17 at 19:30; Stop 03/05/17 at 19:30; Status DC Amlodipine Besylate (Norvasc) 5 mg DAILY PO Last administered on 03/05/17 10:14 ; Start 03/05/17 at 09:00 Atorvastatin Calcium (Lipitor) 40 mg QHS PO Last administered on 03/04/17 20:54 ; Start 03/04/17 at 21:00 Calcitriol (Rocaltrol) 0.25 mcg DAILY PO Last administered on 03/05/17 10:16; Start 03/05/17 at 09:00 Lisinopril (Prinivil) 20 mg DAILY PO Last administered on 03/05/17 10:15; Start 03/05/17 at 09:00 Metoprolol Tartrate (Lopressor) 25 mg BID PO Last administered on 03/05/17 10: 15; Start 03/04/17 at 21:00 Mirtazapine (Remeron) 7.5 mg QHS PO Last administered on 03/04/17 20:55; Start 03/04/17 at 21:00 Potassium Chloride (Klor-Con) 20 meq DAILY PO Last administered on 03/05/17 10: 15; Start 03/05/17 at 09:00 Ticagrelor (Brilinta) 90 mg BID PO Last administered on 03/05/17 10:14; Start 03/04/17 at 21:00 Tramadol HCl (Ultram) 50 mg PRN BID PRN PO PAIN; Start 03/04/17 at 19:15 Fenofibrate (Lofibra) 134 mg DAILY PO Last administered on 03/05/17 10:15; Start 03/05/17 at 09:00 Glipizide (Glucotrol) 10 mg BIDBFRMEAL PO Last administered on 03/05/17 10:13; Start 03/05/17 at 07:30 Insulin Detemir (Levemir) 14 units QHS SQ Last administered on 03/04/17 21:11; Start 03/04/17 at 21:00 Pantoprazole Sodium (Protonix) 40 mg DAILYAC PO Last administered on 03/05/17 10:14; Start 03/05/17 at 07:30 Insulin Aspart (Novolog) 0-9 UNITS TIDWMEALS SQ Last administered on 03/04/17 21:10; Start 03/04/17 at 20:15 Active Scripts Active Atorvastatin Calcium 40 Mg Tablet 40 Mg PO QHS Metoprolol Tartrate 25 Mg Tablet 25 Mg PO BID Brilinta (Ticagrelor) 90 Mg Tablet 90 Mg PO BID Reported Mirtazapine 15 Mg Tablet 0.5 Tab PO QHS Fenofibrate (Fenofibrate Nanocrystallized) 145 Mg Tablet 1 Tab PO DAILY Amlodipine Besylate 5 Mg Tablet 5 Mg PO DAILY Glipizide 10 Mg Tablet 1 Tab PO BID Tramadol Hcl 50 Mg Tablet 50 Mg PO BID PRN Lisinopril 20 Mg Tablet 1 Tab PO DAILY Klor-Con M20 (Potassium Chloride) 20 Meq Tab.er.prt 1 Tab PO DAILY Omeprazole 20 Mg Capsule.dr 1 Cap PO DAILY Calcitriol 0.25 Mcg Capsule 1 Cap PO DAILY Lantus Solostar (Insulin Glargine,Hum.rec.anlog) 100 Unit/1 Ml Insuln.pen 14 Unit SQ QHS Vitals/I & O Vital Sign - Last 24 Hours 03/04/17 03/04/17 03/04/17 03/04/17 14:50 18:02 18:30 18:30 Temp 98.3 97.9 97.9 98.3 97.9 97.9 Pulse 74 81 82 82 Resp 18 20 20 B/P 131/72 133/71 135/57 135/57 Pulse Ox 97 100 97 97 O2 Delivery Room Air Room Air Room Air Room Air 03/04/17 03/04/17 03/04/17 03/04/17 20:00 20:55 22:31 23:30 Temp 98.2 98.2 Pulse 82 63 Resp 18 B/P 135/57 120/52 Pulse Ox 92 O2 Delivery Room Air Room Air Room Air 03/05/17 03/05/17 03/05/17 03/05/17 03:15 07:46 08:00 10:14 Temp 97.8 97.3 97.8 97.3 Pulse 65 85 85 Resp 18 20 B/P 117/74 137/57 137/57 Pulse Ox 98 97 O2 Delivery Room Air Room Air Room Air 03/05/17 03/05/17 03/05/17 10:15 10:15 10:19 Temp 97.6 97.6 Pulse 85 85 87 Resp 18 B/P 137/57 137/57 145/58 Pulse Ox 98 O2 Delivery Room Air Intake and Output 03/04/17 03/04/17 03/05/17 15:00 23:00 07:00 Intake Total 240 ml Balance 240 ml YUMIKO IGNACIO MD Mar 05, 2017 12:13
[2017-03-05 14:44] VITALS: BP 130/69
[2017-03-05] MEDS: ASPIRIN ENTERIC COATED 81 MG TABLET.DR. PO SCH (17:49)
[2017-03-05 19:35] VITALS: BP 161/62
[2017-03-05] MEDS: ATORVASTATIN CALCIUM 40 MG TABLET. PO SCH (20:29)
[2017-03-05] MEDS: MIRTAZAPINE 15 MG TABLET PO SCH (20:30)
[2017-03-05] MEDS: INSULIN DETEMIR 300 UNITS/3 ML INSULN.PEN. SQ SCH (20:39)
[2017-03-05 22:55] VITALS: BP 143/65
[2017-03-06 02:25] VITALS: BP 149/57
[2017-03-06 07:00] VITALS: BP 180/78
[2017-03-06] MEDS: ASPIRIN ENTERIC COATED 81 MG TABLET.DR. PO SCH (08:17)
[2017-03-06] MEDS: FENOFIBRATE,MICRONIZED 134 MG CAPSULE PO SCH (08:17)
[2017-03-06] MEDS: TICAGRELOR 90 MG TABLET. PO SCH (08:17)
[2017-03-06] MEDS: CALCITRIOL 0.25 MCG CAPSULE. PO SCH (08:18)
[2017-03-06] MEDS: LISINOPRIL 20 MG TABLET PO SCH (08:18)
[2017-03-06] MEDS: POTASSIUM CHLORIDE 20 MEQ TABLET.ER. PO SCH (08:19)
[2017-03-06] MEDS: GLIPIZIDE 5 MG TABLET. PO SCH (08:19)
[2017-03-06] MEDS: METOPROLOL TART IMMED RELEASE 25 MG TABLET. PO SCH (08:19)
[2017-03-06 08:20] VITALS: BP 180/78
[2017-03-06] MEDS: AMLODIPINE BESYLATE 5 MG TABLET. PO SCH (08:20)
[2017-03-06] MEDS: PANTOPRAZOLE 40 MG TABLET.DR. PO SCH (08:20)
[2017-03-06] MEDS: INSULIN ASPART 300 UNITS/3 ML INSULN.PEN SQ SCH (08:30)
--- NOTE | 2017-03-06 09:46 | PDOC ---
CARDIO Progress Notes Date and Time Date of Service 03/06/17 Time of Evaluation 0930 Subjective Subjective: No Chest Pain, No shortness of breath, No Palpitations, No Dizziness, Other (ready to go home) Comments: no acute events overnight Vitals Vitals Vital Signs Date Time Temp Pulse Resp B/P Pulse Ox O2 Delivery O2 Flow Rate FiO2 03/06/17 08:20 92 180/78 03/06/17 08:00 Room Air 03/06/17 07:00 97.8 18 96 97.8 Weight Weight [ ] Input and Output Intake and Output Intake and Output 03/06/17 07:00 Intake Total 640 ml Output Total 400 ml Balance 240 ml Intake Oral 640 ml Output Urine Total 400 ml # Voids 6 Laboratory Labs Laboratory Tests Test 03/05/17 11:13 03/05/17 16:46 03/05/17 20:35 Glucose (Fingerstick) 140mg/dL (70-99) 126mg/dL (70-99) 239mg/dL (70-99) Physical Exam HEENT: Neck Supple W Full Motion Chest: Symmetric LUNGS: Clear to Auscultation Heart: S1S2, RRR, murmurs Abdomen: Soft N/T Extremities: 2+ Dorsalis Pedis, No Edema, No Calf Tenderness Neurology: alert, oriented (to person and place; forgetful. Pleasant ), follow commands Assessment Assessment 1. Chest pain resolved, no further episodes. Possibly related to anxiety troponin trending down from STEMI last week no acute events overnight. May discharge from a CV standpoint and f/u in our office as previously scheduled. 2. CAD s/p PCI/BMS to RCA 02/28/17 continue with secondary prevention including DAPT with ASA and Brilinta 3. Ascending aortic aneurysm; 3.9 cm per echo follow in the outpt setting 4. Hypertension continue with current therapy f/u on outpatient 5. Hyperlipidemia statin therapy 6. Diabetes 7. CKD per PCP GURMEET WEBB APRN Mar 06, 2017 09:46
== END 2017-03-06 11:50 | disposition home or self-care (01) | DRG 880 ==
LOC: ER 14:50 → 2 NORTH 16:15
PROVIDERS: ADMIT Internal Medicine; ATTEND Internal Medicine
DX: F41.1 Generalized anxiety disorder (principal); N17.9 Acute kidney failure, unspecified; E44.0 Moderate protein-calorie malnutrition; I71.2 Thoracic aortic aneurysm, without rupture; R07.9 Chest pain, unspecified; N18.9 Chronic kidney disease, unspecified; I12.9 Hypertensive chronic kidney disease with stage 1 through stage 4 chronic kidney disease, or unspecified chronic kidney disease; E11.22 Type 2 diabetes mellitus with diabetic chronic kidney disease; E78.00 Pure hypercholesterolemia, unspecified; E78.5 Hyperlipidemia, unspecified; F03.90 Unspecified dementia, unspecified severity, without behavioral disturbance, psychotic disturbance, mood disturbance, and anxiety; I25.2 Old myocardial infarction; M19.90 Unspecified osteoarthritis, unspecified site; I25.10 Atherosclerotic heart disease of native coronary artery without angina pectoris; K21.9 Gastro-esophageal reflux disease without esophagitis; Z96.652 Presence of left artificial knee joint; Z95.5 Presence of coronary angioplasty implant and graft; Z90.89 Acquired absence of other organs; Z79.899 Other long term (current) drug therapy
CPT/HCPCS: 36415; 71010; 80053; 82550; 82947; 83880; 84484; 85027; 85610; 93005; J1815; 99285-25